=== PATIENT | female | born 1940 | race Caucasian/White ===

== ENCOUNTER 2017-07-20 13:54 | Inpatient (IN) ==
--- NOTE | 2017-07-20 18:51 | Emergency Department Note ---
Disposition Clinical Impression: Cough, Pleural effusion Fever Qualifiers: Fever type: unspecified Qualified Code(s): R50.9 - Fever, unspecified Disposition: Admitted As Inpatient Condition: Fair General Adult HPI - General Chief complaint: ED Shortness of Breath/Dyspnea Stated complaint: pneumonia Time Seen by Provider: 07/20/17 18:18 Source: patient, family, other Mode of arrival: private vehicle Limitations: no limitations Nursing Notes Reviewed: Yes Vital Signs Reviewed: Yes - History of Present Illness HPI Narrative: Patient presents from home with her daughters for evaluation of "possible pneumonia." They state that the home health nurse and the patient's family doctor both said that her right lung sounded abnormal and recommended that she come here. Patient denies pain anywhere at this time. She complains of swelling in her feet and ankles, drainage from her tumors, and an occasional cough. Family states that she has not complained of pain or dyspnea. They also note increased drainage from wounds, edema, wet cough, and describe intermittent confusion, increased weakness, and inability to get around like she used to. Patient has lymphoma. Last Chemo was 2 weeks ago. Due for more this . Sees Dr. Antonio. Had cxr done a couple weeks ago for eval of cough. Pt Subjective Complaint: Generalized weakness, mild intermittent confusion, peripheral edema Onset (ago): week(s) (1) Location: other ("no new pain") Pain Scale: 0 Consistency: intermittent Improves with: nothing Worsens with: nothing Associated symptoms: Reports: confusion (per family, patient denies), cough, fever/chills ("Low grade fever for about a week" per patient's daughters), loss of appetite, weakness (generalized), other (Recently treated for hypercalcemia with some type of infusion at the cancer center). Denies: chest pain, diaphoresis, headaches, malaise, nausea/vomiting, shortness of breath, syncope Treatments Prior to Arrival: none - Related Data Home Medications Medication Instructions Recorded Confirmed Aspirin Enteric Coated [Aspirin EC] 81 mg PO DAILY 10/31/14 07/17/17 Calcium Carbonate/Vitamin D3 1 tab PO BID 10/31/14 07/17/17 [Calcium 600 + D Tablet] Escitalopram [Lexapro] 5 mg PO DAILY 10/31/14 07/17/17 Folic Acid 0.4 mg PO DAILY 10/31/14 07/17/17 LORazepam [Ativan] 0.5 mg PO Q6H PRN 10/31/14 07/17/17 Metoprolol [Lopressor] 150 mg PO DAILY 10/31/14 07/17/17 Multivit-Min/FA/Lycopen/Lutein 1 each PO DAILY 10/31/14 07/17/17 [Centrum Silver Tablet] Atorvastatin [Lipitor] 10 mg PO HS 05/01/16 07/17/17 hydroCHLOROthiazide 12.5 mg PO DAILY PRN 05/01/16 07/17/17 [Hydrochlorothiazide] Lisinopril [Zestril] 10 mg PO DAILY 11/03/16 07/17/17 Cranberry Fruit Extract/Vit C [Azo 1 each PO DAILY 03/04/17 07/17/17 Cranberry Softgel] Previous Rx's Medication Instructions Recorded Ondansetron [Zofran] 4 mg PO Q8HR PRN #90 tablet 01/02/17 Docusate [Colace] 100 mg PO BID #60 capsule 04/17/17 Magic Mouthwash 10 ml PO Q4HR PRN #400 ml 04/21/17 Morphine Sulfate [Arymo ER] 15 mg PO BID 30 Days #60 tab.po.er 07/09/17 OxyCODONE Immed Rel [Roxicodone 15 15 mg PO Q8HR 30 Days #90 tablet 07/17/17 MG] metroNIDAZOLE [Flagyl] 500 mg PO BID #60 tablet 07/17/17 Allergies Allergy/AdvReac Type Severity Reaction Status Date / Time Diclofenac [From Voltaren] Allergy Unknown unknown Verified 07/17/17 08:28 Latex, Natural Rubber Allergy Unknown unknown Verified 07/17/17 08:28 Penicillins [PCN] Allergy Unknown unknown Verified 07/17/17 08:28 All systems ED: reviewed and negative except as stated. Review of Systems: As Per HPI Constitutional: Reports: as per HPI, fever, weakness. Denies: chills, weight change Eyes: Denies: vision change ENT ED: Denies: throat pain, congestion, dysphagia Cardiovascular: Reports: as per HPI, edema. Denies: chest pain, palpitations, dyspnea on exertion, orthopnea, syncope Respiratory: Reports: as per HPI, cough, sputum production ("Sometimes"). Denies: dyspnea, wheezes, hemoptysis, stridor Gastrointestinal: Denies: abdominal pain, nausea, vomiting, diarrhea Genitourinary: Denies: urgency, dysuria, frequency, hematuria Musculoskeletal: Reports: back pain ("No new pain, just hurts where the tumor is ". per patient). Denies: neck pain, joint swelling, arthralgia, myalgia Integumentary: Reports: lesions (draining - bilat breasts). Denies: rash Neurological: Reports: as per HPI, weakness. Denies: headache, numbness, paresthesias, abnormal gait, vertigo Endocrine: Reports: fatigue Hematological/Lymphatic: Reports: lymphadenopathy. Denies: easy bleeding, easy bruising Past Medical History - Past Medical History Attestation: Yes The following information was validated with the patient. Source: patient, old records reviewed, obtained from family Medical history: Reports: arthritis, cancer (mantle cell lymphoma), hyperlipidemia, hypertension, myocardial infarction Surgical history: Reports: appendectomy Psychiatric history: Reports: anxiety, depression - Social History Smoking Status: Never smoker Smokeless Tobacco Status: No Alcohol use: Reports: none Drug use: Reports: none Physical Exam - General Limitations: no limitations General appearance: alert, in no apparent distress - Head Head exam: atraumatic, normocephalic, normal inspection - Eye Eye exam: Present: normal appearance, PERRL, periorbital swelling (mild). Absent: scleral icterus, conjunctival injection, miosis, mydriasis - ENT ENT exam: mucous membranes dry - Neck Neck exam: Present: normal inspection, full ROM, trachea midline. Absent: meningismus - Chest Chest inspection: Present: other (draining lesions - not completely examined due to location of patient) - Respiratory Respiratory exam: Present: other. Absent: respiratory distress, wheezes, stridor, prolonged expiratory phase - Expanded Respiratory Exam Location: rales: Right, Upper, Left, decreased breath sounds: Left, Right, Lower - Cardiovascular Cardiovascular exam: Present: regular rate, normal rhythm, systolic murmur. Absent: clicks - Abdominal Exam Abdominal exam: Present: soft, Non-Tender - Extremities Exam Extremities exam: Present: full ROM, normal capillary refill, pedal edema ( bilateral feet to mid lower leg). Absent: tenderness, joint swelling, calf tenderness - Back Exam Back exam: Present: normal inspection. Absent: CVA tenderness (R), CVA tenderness (L) - Neurological Exam Neurological exam: Present: alert, oriented X3, CN II-XII intact. Absent: normal gait (requires assistance to get from wheel chair to exam table), motor sensory deficit - Psychiatric Psychiatric exam: Present: normal affect, normal mood (surprisingly cheerful, pleasant) - Skin Skin exam: Present: warm, dry, intact, normal color Course Course Narrative: Patient with hx of Lymphoma was brought to the ED by family at the recommendation of her PCP and home health nurse. Pneumonia suspected. Patient in lobby for >4 hours. Brought patient back to fast track area to initiate work up. CXR has been read by the radiologist as no definite infiltrate. Bilateral pulmonary effusions and basilar attelectasis. Labs, ekg, anti- pyretics have been ordered. EKG shows a sinus rhythm, normal rate, Right BBB, LVH. Unchanged compared to previous. 19:00 A medical bed is now available. Patient moved to a room in [facility]. Report given to Dr. Bell / Dr. Coon. Vital Signs Temperature 100.0 F H 07/20/17 13:55 Pulse Rate 79 07/20/17 13:55 Respiratory Rate 18 07/20/17 13:55 Blood Pressure 116/54 07/20/17 13:55 O2 Sat by Pulse Oximetry 96 07/20/17 13:55 Temperature 98.5 F 07/20/17 18:03 Pulse Rate 77 07/20/17 18:03 Respiratory Rate 18 07/20/17 18:03 Blood Pressure 100/57 07/20/17 18:03 O2 Sat by Pulse Oximetry 96 07/20/17 18:03 Oxygen Delivery Oxygen Delivery Room Air
[2017-07-20 19:06] LABS: INR 1.5
[2017-07-20 19:09] LABS: Activated Partial Thrombo Time 25.8 Seconds (26.0-36.0)
[2017-07-20 19:20] LABS: BUN/Creatinine Ratio 20 (6-26); Blood Urea Nitrogen 16 mg/dL (8-23); Calcium 11.2 mg/dL (8.6-10.3); Carbon Dioxide 28 mEq/L (23-29); Chloride 97 mEq/L (98-107); Glucose 69 mg/dL (70-105); Osmolality,Calculated 276 (280-300); Potassium 4.3 mEq/L (3.5-5.1); Sodium 133 mEq/L (136-145); Troponin I < 0.03 ng/mL (< 0.04); eGFR For African Americans > 60 (> 60); eGFR For Non-African Americans > 60 (> 60)
[2017-07-20] MEDS ORDERED: Isovue-370 500 ML INFUS..BTL IV ONE (19:32)
--- NOTE | 2017-07-20 19:33 | Emergency Department Note ---
Disposition Clinical Impression: Cough, Pleural effusion, Lymphoma, Pulmonary embolism Fever Qualifiers: Fever type: unspecified Qualified Code(s): R50.9 - Fever, unspecified Disposition: Admitted As Inpatient Condition: Fair Referrals: Jerry,Florentino Swan MD [Primary Care Provider] - Forms: ED Satisfaction Letter Time of Disposition: 21:13 SOB HPI - General Chief Complaint: ED Shortness of Breath/Dyspnea Stated Complaint: pneumonia Time Seen by Provider: 07/20/17 18:18 Source: patient, family, other Mode of arrival: private vehicle Limitations: no limitations - Related Data Home Medications Medication Instructions Recorded Confirmed Aspirin Enteric Coated [Aspirin EC] 81 mg PO DAILY 10/31/14 07/20/17 Calcium Carbonate/Vitamin D3 1 tab PO BID 10/31/14 07/20/17 [Calcium 600 + D Tablet] Escitalopram [Lexapro] 5 mg PO DAILY 10/31/14 07/20/17 Folic Acid 0.4 mg PO DAILY 10/31/14 07/20/17 LORazepam [Ativan] 0.5 mg PO Q6H PRN 10/31/14 07/20/17 Metoprolol [Lopressor] 150 mg PO DAILY 10/31/14 07/20/17 Multivit-Min/FA/Lycopen/Lutein 1 each PO DAILY 10/31/14 07/20/17 [Centrum Silver Tablet] Atorvastatin [Lipitor] 10 mg PO HS 05/01/16 07/20/17 hydroCHLOROthiazide 12.5 mg PO DAILY PRN 05/01/16 07/20/17 [Hydrochlorothiazide] Lisinopril [Zestril] 10 mg PO DAILY 11/03/16 07/20/17 Cranberry Fruit Extract/Vit C [Azo 1 each PO DAILY 03/04/17 07/20/17 Cranberry Softgel] Previous Rx's Medication Instructions Recorded Ondansetron [Zofran] 4 mg PO Q8HR PRN #90 tablet 01/02/17 Docusate [Colace] 100 mg PO BID #60 capsule 04/17/17 Magic Mouthwash 10 ml PO Q4HR PRN #400 ml 04/21/17 Morphine Sulfate [Arymo ER] 15 mg PO BID 30 Days #60 tab.po.er 07/09/17 OxyCODONE Immed Rel [Roxicodone 15 15 mg PO Q8HR 30 Days #90 tablet 07/17/17 MG] metroNIDAZOLE [Flagyl] 500 mg PO BID #60 tablet 07/17/17 Allergies Allergy/AdvReac Type Severity Reaction Status Date / Time Diclofenac [From Voltaren] Allergy Unknown unknown Verified 07/20/17 20:31 Latex, Natural Rubber Allergy Unknown unknown Verified 07/20/17 20:31 Penicillins [PCN] Allergy Unknown unknown Verified 07/20/17 20:31 Constitutional: Reports: as per HPI, fever, weakness. Denies: chills, weight change Eyes: Denies: vision change ENT ED: Denies: throat pain, congestion, dysphagia Cardiovascular: Reports: as per HPI, edema. Denies: chest pain, palpitations, dyspnea on exertion, orthopnea, syncope Respiratory: Reports: as per HPI, cough, sputum production ("Sometimes"). Denies: dyspnea, wheezes, hemoptysis, stridor Gastrointestinal: Denies: abdominal pain, nausea, vomiting, diarrhea Genitourinary: Denies: urgency, dysuria, frequency, hematuria Musculoskeletal: Reports: back pain ("No new pain, just hurts where the tumor is ". per patient). Denies: neck pain, joint swelling, arthralgia, myalgia Integumentary: Reports: lesions (draining - bilat breasts). Denies: rash Neurological: Reports: as per HPI, weakness. Denies: headache, numbness, paresthesias, abnormal gait, vertigo Endocrine: Reports: fatigue Hematological/Lymphatic: Reports: lymphadenopathy. Denies: easy bleeding, easy bruising Past Medical History - Past Medical History Medical history: Reports: arthritis, cancer (mantle cell lymphoma), hyperlipidemia, hypertension, myocardial infarction Surgical history: Reports: appendectomy Psychiatric history: Reports: anxiety, depression - Social History Smoking Status: Never smoker Smokeless Tobacco Status: No Alcohol use: Reports: none Drug use: Reports: none Physical Exam - General Limitations: no limitations General appearance: alert, in no apparent distress Course - Reevaluation(s) Reevaluation #1: Signout received from Coby Minor. Please see her note for full documentation of the history of present illness and physical. I agree with her assessment. In summary, patient has a history of malignancy and is presenting for cough, congestion, and generalized weakness. Family reports she normally rebounds from her chemotherapy within a few days, but it is been almost 2 weeks and she is still needing assistance with walking, which is unusual for her. She has had a nonproductive cough. Intermittent fevers. Concern over infectious ideology. She also has swelling in her right leg into my exam. Her oxygen saturation is 94%. She is denying any chest discomfort or shortness of breath. However, we will CT her chest to fully evaluate for the possibility of pneumonia, pneumonitis, malignant changes, or pulmonary embolism. - Consultations Consultation #1: Patient has a left-sided PE with no evidence heart strain. We will start her on heparin and admit. Patient family agreeable plan. Admitted to the hospital service. We did discuss that the patient had an elevated lactic acid and was mildly febrile. I do not think that she has pneumonia. I do think her fever was reactive to her PE and/or her lymphoma. We also discussed her enlarging lymphoma in her breasts. Will obviously be consulting oncology during this admission. Time: 21:11 Vital Signs Temperature 100.0 F H 07/20/17 13:55 Pulse Rate 79 07/20/17 13:55 Respiratory Rate 18 07/20/17 13:55 Blood Pressure 116/54 07/20/17 13:55 O2 Sat by Pulse Oximetry 96 07/20/17 13:55 Temperature 98.5 F 07/20/17 18:03 Pulse Rate 77 07/20/17 18:03 Respiratory Rate 18 07/20/17 18:03 Blood Pressure 100/57 07/20/17 18:03 O2 Sat by Pulse Oximetry 96 07/20/17 18:03 Oxygen Delivery Oxygen Delivery Room Air Shortness of Breath/Dyspnea - Lab Data Result diagrams: 07/20/17 18:46 07/20/17 18:46 Lab Results 07/20/17 07/20/17 07/20/17 Range/Units 18:46 18:46 18:46 WBC 8.0 (4.3-11.1) K/mcL RBC 3.31 L (3.82-4.97) M/mcL Hgb 9.3 L (11.5-15.4) g/dL Hct 28.4 L (35.3-44.9) % MCV 85.8 (83.0-100.0) fL MCH 28.1 (28.0-33.3) pg MCHC 32.7 (31.6-35.5) g/dL RDW 14.1 (11.5-14.5) % Plt Count 138 L (140-400) K/mcL MPV 12.7 H (9.4-12.4) fL Immature Gran % 7.0 H (0-4) % Seg Neutrophils % 62.3 % Lymphocytes % 12.2 % Monocytes % 17.7 % Eosinophils % 0.6 % Basophils % 0.2 % Neutrophils # 5.0 (1.6-8.9) K/mcL Lymphocytes # 1.0 (0.6-4.6) K/mcL Monocytes # 1.4 H (0.0-1.3) K/mcL Eosinophils # 0.1 (0.0-0.6) K/mcL Basophils # 0.0 (0.0-0.2) K/mcL Platelet Estimate Normal (Normal) Immature Plt Fraction 10.6 H (1.1-6.1) % PT (9.4-12.1) Seconds INR APTT (26.0-36.0) Seconds Sodium 133 L (136-145) mEq/L Potassium 4.3 (3.5-5.1) mEq/L Chloride 97 L (98-107) mEq/L Carbon Dioxide 28 (23-29) mEq/L BUN 16 (8-23) mg/dL Creatinine 0.80 (0.60-1.20) mg/dL Est GFR ( Amer) > 60 (> 60) Est GFR (Non-Af Amer) > 60 (> 60) BUN/Creatinine Ratio 20 (6-26) Glucose 69 L (70-105) mg/dL Calculated Osmolality 276 L (280-300) Lactic Acid 2.8 H (0.5-2.2) mmol/L Calcium 11.2 H (8.6-10.3) mg/dL Troponin I < 0.03 (< 0.04) ng/mL B-Natriuretic Peptide (Less than 100) pg/mL Urine Color (Yellow) Urine Clarity (Clear) Urine pH (5.0-8.0) pH Units Ur Specific Homer (1.010-1.025) Urine Protein (Neg-Trace) mg/dL Urine Glucose (UA) (Normal) mg/dL Urine Ketones (Negative) mg/dL Urine Blood (Negative) Urine Nitrite (Negative) Urine Bilirubin (Negative) Urine Urobilinogen (Normal) mg/dL Ur Leukocyte Esterase (Negative) Urine Microscopic RBC (0-3) per hpf Urine Microscopic WBC (0-3) per hpf Ur Squamous Epith Cells (None-Few) per lpf Urine Bacteria (None-Few) per hpf Hyaline Casts (None-Few) per lpf Ur Culture Indicated? (NO) 07/20/17 07/20/17 07/20/17 Range/Units 18:46 18:46 19:29 WBC (4.3-11.1) K/mcL RBC (3.82-4.97) M/mcL Hgb (11.5-15.4) g/dL Hct (35.3-44.9) % MCV (83.0-100.0) fL MCH (28.0-33.3) pg MCHC (31.6-35.5) g/dL RDW (11.5-14.5) % Plt Count (140-400) K/mcL MPV (9.4-12.4) fL Immature Gran % (0-4) % Seg Neutrophils % % Lymphocytes % % Monocytes % % Eosinophils % % Basophils % % Neutrophils # (1.6-8.9) K/mcL Lymphocytes # (0.6-4.6) K/mcL Monocytes # (0.0-1.3) K/mcL Eosinophils # (0.0-0.6) K/mcL Basophils # (0.0-0.2) K/mcL Platelet Estimate (Normal) Immature Plt Fraction (1.1-6.1) % PT 16.0 H (9.4-12.1) Seconds INR 1.5 APTT 25.8 L (26.0-36.0) Seconds Sodium (136-145) mEq/L Potassium (3.5-5.1) mEq/L Chloride (98-107) mEq/L Carbon Dioxide (23-29) mEq/L BUN (8-23) mg/dL Creatinine (0.60-1.20) mg/dL Est GFR ( Amer) (> 60) Est GFR (Non-Af Amer) (> 60) BUN/Creatinine Ratio (6-26) Glucose (70-105) mg/dL Calculated Osmolality (280-300) Lactic Acid (0.5-2.2) mmol/L Calcium (8.6-10.3) mg/dL Troponin I (< 0.04) ng/mL B-Natriuretic Peptide 174 H (Less than 100) pg/mL Urine Color Dark Yellow (Yellow) Urine Clarity Clear (Clear) Urine pH 5.5 (5.0-8.0) pH Units Ur Specific Homer 1.025 (1.010-1.025) Urine Protein 30 H (Neg-Trace) mg/dL Urine Glucose (UA) Normal (Normal) mg/dL Urine Ketones 15 H (Negative) mg/dL Urine Blood Negative (Negative) Urine Nitrite Negative (Negative) Urine Bilirubin Negative (Negative) Urine Urobilinogen Normal (Normal) mg/dL Ur Leukocyte Esterase Trace H (Negative) Urine Microscopic RBC 0-3 (0-3) per hpf Urine Microscopic WBC 3-5 H (0-3) per hpf Ur Squamous Epith Cells Many H (None-Few) per lpf Urine Bacteria None Seen (None-Few) per hpf Hyaline Casts None Seen (None-Few) per lpf Ur Culture Indicated? NO. A (NO) Attestation Statement - Attestation Attestation: I, Hema Coon DO, examined this patient [id number] and my medical decision-making was reviewed with Dr. Jovanny Bell, Resident Physician. I agree with the documented findings, disposition and treatment plan as described except to the extent set forth below. Please see my progress notes for details.
[2017-07-20 19:35] LABS: Basophils % 0.2 %; Eosinophils # 0.1 K/mcL (0.0-0.6); Eosinophils % 0.6 %; Hematocrit 28.4 % (35.3-44.9); Hemoglobin 9.3 g/dL (11.5-15.4); Immature Platelets 10.6 % (1.1-6.1); Lymphocytes % 12.2 %; Mean Corpuscular HGB Conc 32.7 g/dL (31.6-35.5); Mean Corpuscular Hemoglobin 28.1 pg (28.0-33.3); Mean Corpuscular Volume 85.8 fL (83.0-100.0); Mean Platelet Volume 12.7 fL (9.4-12.4); Monocytes # 1.4 K/mcL (0.0-1.3); Monocytes % 17.7 %; Platelet Count 138 K/mcL (140-400); Red Blood Count 3.31 M/mcL (3.82-4.97); Red Cell Distribution Width 14.1 % (11.5-14.5); Segmented Neutrophils % 62.3 %
[2017-07-20 19:49] LABS: Bilirubin,Urine Negative (Negative); Blood,Urine Negative (Negative); Clarity,Urine Clear (Clear); Color,Urine Dark Yellow (Yellow); Glucose,Urine (UA) Normal (Normal); Ketones,Urine 15 mg/dL (Negative); Leukocyte Esterase,Urine Trace (Negative); Nitrite,Urine Negative (Negative); PH,Urine 5.5 pH Units (5.0-8.0); Protein,Urine 30 mg/dL (Neg-Trace); Specific Gravity,Urine 1.025 (1.010-1.025); Urobilinogen,Urine Normal (Normal)
[2017-07-20 19:51] LABS: Bacteria,Urine None Seen per hpf (None-Few); Hyaline Casts,Urine None Seen per lpf (None-Few); RBC,Urine 0-3 per hpf (0-3); Squamous Epithelial Cell,Urine Many per lpf (None-Few)
[2017-07-20 19:57] LABS: Platelet Estimate Normal (Normal)
--- NOTE | 2017-07-20 20:25 | Emergency Department Note ---
Disposition Clinical Impression: Cough, Pleural effusion, Lymphoma, Pulmonary embolism Fever Qualifiers: Fever type: unspecified Qualified Code(s): R50.9 - Fever, unspecified Disposition: Admitted As Inpatient Condition: Fair General Adult HPI - General Chief complaint: ED Shortness of Breath/Dyspnea Stated complaint: pneumonia Time Seen by Provider: 07/20/17 18:18 Source: patient, family, other Mode of arrival: private vehicle Limitations: no limitations - History of Present Illness Location: other ("no new pain") Pain Scale: 0 Improves with: nothing Worsens with: nothing Associated symptoms: Reports: confusion (per family, patient denies), cough, fever/chills ("Low grade fever for about a week" per patient's daughters), loss of appetite, weakness (generalized), other (Recently treated for hypercalcemia with some type of infusion at the cancer center). Denies: chest pain, diaphoresis, headaches, malaise, nausea/vomiting, shortness of breath, syncope Treatments Prior to Arrival: none - Related Data Home Medications Medication Instructions Recorded Confirmed Aspirin Enteric Coated [Aspirin EC] 81 mg PO DAILY 10/31/14 07/20/17 Calcium Carbonate/Vitamin D3 1 tab PO BID 10/31/14 07/20/17 [Calcium 600 + D Tablet] Escitalopram [Lexapro] 5 mg PO DAILY 10/31/14 07/20/17 Folic Acid 0.4 mg PO DAILY 10/31/14 07/20/17 LORazepam [Ativan] 0.5 mg PO Q6H PRN 10/31/14 07/20/17 Metoprolol [Lopressor] 150 mg PO DAILY 10/31/14 07/20/17 Multivit-Min/FA/Lycopen/Lutein 1 each PO DAILY 10/31/14 07/20/17 [Centrum Silver Tablet] Atorvastatin [Lipitor] 10 mg PO HS 05/01/16 07/20/17 hydroCHLOROthiazide 12.5 mg PO DAILY PRN 05/01/16 07/20/17 [Hydrochlorothiazide] Lisinopril [Zestril] 10 mg PO DAILY 11/03/16 07/20/17 Cranberry Fruit Extract/Vit C [Azo 1 each PO DAILY 03/04/17 07/20/17 Cranberry Softgel] Previous Rx's Medication Instructions Recorded Ondansetron [Zofran] 4 mg PO Q8HR PRN #90 tablet 01/02/17 Docusate [Colace] 100 mg PO BID #60 capsule 04/17/17 Magic Mouthwash 10 ml PO Q4HR PRN #400 ml 04/21/17 Morphine Sulfate [Arymo ER] 15 mg PO BID 30 Days #60 tab.po.er 07/09/17 OxyCODONE Immed Rel [Roxicodone 15 15 mg PO Q8HR 30 Days #90 tablet 07/17/17 MG] metroNIDAZOLE [Flagyl] 500 mg PO BID #60 tablet 07/17/17 Allergies Allergy/AdvReac Type Severity Reaction Status Date / Time Diclofenac [From Voltaren] Allergy Unknown unknown Verified 07/20/17 20:31 Latex, Natural Rubber Allergy Unknown unknown Verified 07/20/17 20:31 Penicillins [PCN] Allergy Unknown unknown Verified 07/20/17 20:31 Constitutional: Reports: as per HPI, fever, weakness. Denies: chills, weight change Eyes: Denies: vision change ENT ED: Denies: throat pain, congestion, dysphagia Cardiovascular: Reports: as per HPI, edema. Denies: chest pain, palpitations, dyspnea on exertion, orthopnea, syncope Respiratory: Reports: as per HPI, cough, sputum production ("Sometimes"). Denies: dyspnea, wheezes, hemoptysis, stridor Gastrointestinal: Denies: abdominal pain, nausea, vomiting, diarrhea Genitourinary: Denies: urgency, dysuria, frequency, hematuria Musculoskeletal: Reports: back pain ("No new pain, just hurts where the tumor is ". per patient). Denies: neck pain, joint swelling, arthralgia, myalgia Integumentary: Reports: lesions (draining - bilat breasts). Denies: rash Neurological: Reports: as per HPI, weakness. Denies: headache, numbness, paresthesias, abnormal gait, vertigo Endocrine: Reports: fatigue Hematological/Lymphatic: Reports: lymphadenopathy. Denies: easy bleeding, easy bruising Past Medical History - Past Medical History Medical history: Reports: arthritis, cancer (mantle cell lymphoma), hyperlipidemia, hypertension, myocardial infarction Surgical history: Reports: appendectomy Psychiatric history: Reports: anxiety, depression - Social History Smoking Status: Never smoker Smokeless Tobacco Status: No Alcohol use: Reports: none Drug use: Reports: none Physical Exam - General Limitations: no limitations General appearance: alert, in no apparent distress Course Vital Signs Temperature 100.0 F H 07/20/17 13:55 Pulse Rate 79 07/20/17 13:55 Respiratory Rate 18 07/20/17 13:55 Blood Pressure 116/54 07/20/17 13:55 O2 Sat by Pulse Oximetry 96 07/20/17 13:55 Temperature 98.5 F 07/20/17 18:03 Pulse Rate 76 07/20/17 21:29 Respiratory Rate 20 07/20/17 21:29 Blood Pressure 134/58 07/20/17 21:29 O2 Sat by Pulse Oximetry 92 07/20/17 21:29 Oxygen Delivery Oxygen Delivery Room Air Medical Decision Making - Lab Data Result diagrams: 07/20/17 18:46 07/20/17 18:46 Lab Results 07/20/17 07/20/17 07/20/17 Range/Units 18:46 18:46 18:46 WBC 8.0 (4.3-11.1) K/mcL RBC 3.31 L (3.82-4.97) M/mcL Hgb 9.3 L (11.5-15.4) g/dL Hct 28.4 L (35.3-44.9) % MCV 85.8 (83.0-100.0) fL MCH 28.1 (28.0-33.3) pg MCHC 32.7 (31.6-35.5) g/dL RDW 14.1 (11.5-14.5) % Plt Count 138 L (140-400) K/mcL MPV 12.7 H (9.4-12.4) fL Immature Gran % 7.0 H (0-4) % Seg Neutrophils % 62.3 % Lymphocytes % 12.2 % Monocytes % 17.7 % Eosinophils % 0.6 % Basophils % 0.2 % Neutrophils # 5.0 (1.6-8.9) K/mcL Lymphocytes # 1.0 (0.6-4.6) K/mcL Monocytes # 1.4 H (0.0-1.3) K/mcL Eosinophils # 0.1 (0.0-0.6) K/mcL Basophils # 0.0 (0.0-0.2) K/mcL Platelet Estimate Normal (Normal) Immature Plt Fraction 10.6 H (1.1-6.1) % PT (9.4-12.1) Seconds INR APTT (26.0-36.0) Seconds Sodium 133 L (136-145) mEq/L Potassium 4.3 (3.5-5.1) mEq/L Chloride 97 L (98-107) mEq/L Carbon Dioxide 28 (23-29) mEq/L BUN 16 (8-23) mg/dL Creatinine 0.80 (0.60-1.20) mg/dL Est GFR ( Amer) > 60 (> 60) Est GFR (Non-Af Amer) > 60 (> 60) BUN/Creatinine Ratio 20 (6-26) Glucose 69 L (70-105) mg/dL Calculated Osmolality 276 L (280-300) Lactic Acid 2.8 H (0.5-2.2) mmol/L Calcium 11.2 H (8.6-10.3) mg/dL Troponin I < 0.03 (< 0.04) ng/mL B-Natriuretic Peptide (Less than 100) pg/mL Urine Color (Yellow) Urine Clarity (Clear) Urine pH (5.0-8.0) pH Units Ur Specific [place] (1.010-1.025) Urine Protein (Neg-Trace) mg/dL Urine Glucose (UA) (Normal) mg/dL Urine Ketones (Negative) mg/dL Urine Blood (Negative) Urine Nitrite (Negative) Urine Bilirubin (Negative) Urine Urobilinogen (Normal) mg/dL Ur Leukocyte Esterase (Negative) Urine Microscopic RBC (0-3) per hpf Urine Microscopic WBC (0-3) per hpf Ur Squamous Epith Cells (None-Few) per lpf Urine Bacteria (None-Few) per hpf Hyaline Casts (None-Few) per lpf Ur Culture Indicated? (NO) 07/20/17 07/20/17 07/20/17 Range/Units 18:46 18:46 19:29 WBC (4.3-11.1) K/mcL RBC (3.82-4.97) M/mcL Hgb (11.5-15.4) g/dL Hct (35.3-44.9) % MCV (83.0-100.0) fL MCH (28.0-33.3) pg MCHC (31.6-35.5) g/dL RDW (11.5-14.5) % Plt Count (140-400) K/mcL MPV (9.4-12.4) fL Immature Gran % (0-4) % Seg Neutrophils % % Lymphocytes % % Monocytes % % Eosinophils % % Basophils % % Neutrophils # (1.6-8.9) K/mcL Lymphocytes # (0.6-4.6) K/mcL Monocytes # (0.0-1.3) K/mcL Eosinophils # (0.0-0.6) K/mcL Basophils # (0.0-0.2) K/mcL Platelet Estimate (Normal) Immature Plt Fraction (1.1-6.1) % PT 16.0 H (9.4-12.1) Seconds INR 1.5 APTT 25.8 L (26.0-36.0) Seconds Sodium (136-145) mEq/L Potassium (3.5-5.1) mEq/L Chloride (98-107) mEq/L Carbon Dioxide (23-29) mEq/L BUN (8-23) mg/dL Creatinine (0.60-1.20) mg/dL Est GFR ( Amer) (> 60) Est GFR (Non-Af Amer) (> 60) BUN/Creatinine Ratio (6-26) Glucose (70-105) mg/dL Calculated Osmolality (280-300) Lactic Acid (0.5-2.2) mmol/L Calcium (8.6-10.3) mg/dL Troponin I (< 0.04) ng/mL B-Natriuretic Peptide 174 H (Less than 100) pg/mL Urine Color Dark Yellow (Yellow) Urine Clarity Clear (Clear) Urine pH 5.5 (5.0-8.0) pH Units Ur Specific [place] 1.025 (1.010-1.025) Urine Protein 30 H (Neg-Trace) mg/dL Urine Glucose (UA) Normal (Normal) mg/dL Urine Ketones 15 H (Negative) mg/dL Urine Blood Negative (Negative) Urine Nitrite Negative (Negative) Urine Bilirubin Negative (Negative) Urine Urobilinogen Normal (Normal) mg/dL Ur Leukocyte Esterase Trace H (Negative) Urine Microscopic RBC 0-3 (0-3) per hpf Urine Microscopic WBC 3-5 H (0-3) per hpf Ur Squamous Epith Cells Many H (None-Few) per lpf Urine Bacteria None Seen (None-Few) per hpf Hyaline Casts None Seen (None-Few) per lpf Ur Culture Indicated? NO. A (NO) 07/20/17 Range/Units 20:51 WBC (4.3-11.1) K/mcL RBC (3.82-4.97) M/mcL Hgb (11.5-15.4) g/dL Hct (35.3-44.9) % MCV (83.0-100.0) fL MCH (28.0-33.3) pg MCHC (31.6-35.5) g/dL RDW (11.5-14.5) % Plt Count (140-400) K/mcL MPV (9.4-12.4) fL Immature Gran % (0-4) % Seg Neutrophils % % Lymphocytes % % Monocytes % % Eosinophils % % Basophils % % Neutrophils # (1.6-8.9) K/mcL Lymphocytes # (0.6-4.6) K/mcL Monocytes # (0.0-1.3) K/mcL Eosinophils # (0.0-0.6) K/mcL Basophils # (0.0-0.2) K/mcL Platelet Estimate (Normal) Immature Plt Fraction (1.1-6.1) % PT (9.4-12.1) Seconds INR APTT (26.0-36.0) Seconds Sodium (136-145) mEq/L Potassium (3.5-5.1) mEq/L Chloride (98-107) mEq/L Carbon Dioxide (23-29) mEq/L BUN (8-23) mg/dL Creatinine (0.60-1.20) mg/dL Est GFR ( Amer) (> 60) Est GFR (Non-Af Amer) (> 60) BUN/Creatinine Ratio (6-26) Glucose (70-105) mg/dL Calculated Osmolality (280-300) Lactic Acid 2.3 H (0.5-2.2) mmol/L Calcium (8.6-10.3) mg/dL Troponin I (< 0.04) ng/mL B-Natriuretic Peptide (Less than 100) pg/mL Urine Color (Yellow) Urine Clarity (Clear) Urine pH (5.0-8.0) pH Units Ur Specific [place] (1.010-1.025) Urine Protein (Neg-Trace) mg/dL Urine Glucose (UA) (Normal) mg/dL Urine Ketones (Negative) mg/dL Urine Blood (Negative) Urine Nitrite (Negative) Urine Bilirubin (Negative) Urine Urobilinogen (Normal) mg/dL Ur Leukocyte Esterase (Negative) Urine Microscopic RBC (0-3) per hpf Urine Microscopic WBC (0-3) per hpf Ur Squamous Epith Cells (None-Few) per lpf Urine Bacteria (None-Few) per hpf Hyaline Casts (None-Few) per lpf Ur Culture Indicated? (NO) Attestation Statement - Attestation Attestation: I, Hema Coon DO, examined this patient [id number] and my medical decision-making was reviewed with Dr. Jovanny Bell, Resident Physician. I agree with the documented findings, disposition and treatment plan as described except to the extent set forth below. Please see my progress notes for details. 76-year-old female presents emergency room with cough congestion shortness of breath. There is concern for possible pneumonia. She is currently in treatment for lymphoma. Patient has been getting chemotherapy every 2 weeks for the last 4 years. Patient denies any trauma or injuries. Vital signs are stable on presentation except for fever. Patient has had a productive cough. Denies any chest pain headache vision changes nausea vomiting or diarrhea. She has had constipation. Denies any burning with urination falls or trauma. Patient is alert she answers questions she follows commands. Labs including CBC chemistry urinalysis as well as chest x-ray EKG and possible CT imaging of the chest will be completed secondary to patient's presentation symptoms. Blood cultures were ordered. Antibiotic regimen will be started once the workup is patient's blood pressure and heart rate of been otherwise unremarkable. Patient will most of the require admission was the treatment course and evaluation are established and completed. See detailed documentation of the physical exam, medical intervention, medical decision- making and disposition the resident physician's note. Patient's lungs are coarse bilaterally she does have intermittent wheezing. Her abdomen is soft nontender nondistended no guarding no rigidity. She has +2 pitting edema to the midshin bilaterally pulses are intact and symmetrical bilaterally. Patient does appear to be alert and has normal neurologic evaluation evaluation here in the emergency room. 2044 Patient found to have left-sided PEs with segmental and subsegmental presentation. Patient does not show any hemodynamic instability but because of the progressive disease with her lymphoma as well as a chemotherapy and the borderline temperature patient will be admitted to the hospital with a heparin drip. Unfortunately, there is no infectious etiology noted on the workup of this point sandbox will be held. She has been slightly elevated lactic acid as well as temperature on presentation but none of which are meeting sepsis criteria patient will be admitted for further definitive management. Vital signs remain stable without the treatment course. Both patient and the family have been informed of the plan and they are comfortable with this at this time. No other acute concerns or issues noted. Hospitalist was paged. Patient was accepted by the hospitalist. Repeat lactic acid was 2.3. No antibiotic to be started this time. Patient is otherwise clinically stable and will be admitted at this point for pulmonary emboli and anemia with shortness of breath.
[2017-07-20] MEDS ORDERED: *HR* Heparin 5,000 UNIT/ML VIAL IVP ONE (20:41)
[2017-07-20] MEDS: 0.9 % Sodium Chloride 1,000 ML IVC SCH (20:51)
[2017-07-20] MEDS: Heparin 25,000 UNIT/500 ML D5W 25,000 UNIT/500 ML BAG IVC SCH (23:12)
[2017-07-20] MEDS ORDERED: *HR* HYDROcodone/Acet 5/325 mg TABLET PO PRN (23:39)
[2017-07-20] MEDS ORDERED: Naloxone 0.4 MG/ML INJ IVP PRN (23:39)
[2017-07-20] MEDS ORDERED: *HR* OxyCODONE Immed Rel 5 MG TABLET PO PRN (23:39)
[2017-07-20] MEDS ORDERED: Acetaminophen 325 MG TABLET PO PRN (23:39)
[2017-07-20] MEDS ORDERED: *HR* LORazepam 0.5 MG TABLET PO PRN (23:44)
[2017-07-20] MEDS ORDERED: Magic Mouthwash 10 ML UD Cup PO PRN (23:44)
--- NOTE | 2017-07-20 23:47 | Internal Med History&Physical ---
Date of Encounter: 07/20/17 Time of Encounter: 23:47 Internal Medicine - H&P: HPI Chief complaint: Weakness, malaise Admitted From: Emergency Dept Plans for Post Hospital Care: Home History of present illness: Ms. Jones is a 76 year old female with h/o- mantle cell lymphoma with multiple skin lesions, presents with c/o- generalized weakness and malaise for the last few days. History is also obtained from patient's daughter at bedside. patient does live alone but her family checks on her frequently; she just had [facility] set up. She failed initial chemotherapy for lymphoma and was recently started on a new regimen about 10days ago, since when she began declining per family. SHe has significant malaise, weakness and lethargy along with exertional dyspnea, leg swelling and moist cough. No chest pain, palpitations. She reports nausea but no vomiting, abdominal pain; she has constipation due to pain meds. She also noted right breast lesion size and drainage has increased over the last few days. She has multiple lymphomatous skin lesions, the biggest and worst being in right breast, along with left breast, left hip, right back. SHe cleans them, applies Neosporin and covers with dry gauze. Past Med Surg Social Fam HX - Past Medical History Source: patient Medical history: arthritis, cancer (NHL), coronary artery disease, myocardial infarction Psychiatric history: anxiety, depression - Past Surgical History Surgical History: appendectomy, other (oophorectomy, axillary lymph node dissection) - Social History Smoking Status: Never smoker Smokeless Tobacco Status: No Alcohol use: none Drug use: none Current living situation: Home - Independent Activity Level: Independent ambulation Recent Out of Country Travel Within the Last 8 Weeks: No Exposure or Possible Exposure to Illness During Travel: No - Family History Sister Hx Family Cancer: Yes (breast cancer, renal cancer) Hx Family Endocrine Disorder: Yes (DM) Internal Medicine - H&P: Meds Aspirin Enteric Coated [Aspirin EC] 81 mg PO DAILY 10/31/14 [History] Calcium Carbonate/Vitamin D3 [Calcium 600 + D Tablet] 1 tab PO BID 10/31/14 [ History] Escitalopram [Lexapro] 5 mg PO DAILY 10/31/14 [History] Folic Acid 0.4 mg PO DAILY 10/31/14 [History] LORazepam [Ativan] 0.5 mg PO Q6H PRN 10/31/14 [History] Metoprolol [Lopressor] 150 mg PO DAILY 10/31/14 [History] Multivit-Min/FA/Lycopen/Lutein [Centrum Silver Tablet] 1 each PO DAILY 10/31/14 [History] Atorvastatin [Lipitor] 10 mg PO HS 05/01/16 [History] hydroCHLOROthiazide [Hydrochlorothiazide] 12.5 mg PO DAILY PRN 05/01/16 [History ] Lisinopril [Zestril] 10 mg PO DAILY 11/03/16 [History] Ondansetron [Zofran] 4 mg PO Q8HR PRN #90 tablet 01/02/17 [Rx] Cranberry Fruit Extract/Vit C [Azo Cranberry Softgel] 1 each PO DAILY 03/04/17 [ History] Docusate [Colace] 100 mg PO BID #60 capsule 04/17/17 [Rx] Magic Mouthwash 10 ml PO Q4HR PRN #400 ml 04/21/17 [Rx] Morphine Sulfate [Arymo ER] 15 mg PO BID 30 Days #60 tab.po.er 07/09/17 [Rx] OxyCODONE Immed Rel [Roxicodone 15 MG] 15 mg PO Q8HR 30 Days #90 tablet [Rx] metroNIDAZOLE [Flagyl] 500 mg PO BID #60 tablet 07/17/17 [Rx] 3 Allergy/AdvReac Type Severity Reaction Status Date / Time Diclofenac [From Voltaren] Allergy Unknown unknown Verified 07/20/17 20:31 Latex, Natural Rubber Allergy Unknown unknown Verified 07/20/17 20:31 Penicillins [PCN] Allergy Unknown unknown Verified 07/20/17 20:31 All Systems PM: A 10-system review of systems was performed and is negative for pertinent findings except as documented above in the HPI. - Constitutional Constitutional: chills, fever(s), no night sweats - EENT Eyes: no change in vision, no discharge, no pain, no photophobia Ears: no ear discharge, no ear pain, no tinnitus Nose, mouth and throat: no dysphagia, no nasal discharge, no neck pain, no sore throat - Cardiovascular Cardiovascular ROS IM: dyspnea, dyspnea on exertion, edema, lightheadedness - Respiratory Respiratory: cough, dyspnea on exertion, chest congestion - Gastrointestinal Gastrointestinal: constipation, no abdominal pain, no diarrhea, no hematemesis, no hematochezia, no melena, no nausea, no vomiting - Genitourinary Genitourinary: no change in urinary stream, no dysuria, no flank pain, no hematuria - Musculoskeletal Musculoskeletal ROS IM: no numbness, no tingling - Integumentary Integumentary IM: as per HPI, non-healing lesions, no rash, no unusual bruising - Neurological Neurological ROS: no confusion, no convulsions, no focal weakness, no numbness, no tingling, no tremor(s) - Hematologic/Lymphatic Hematologic/Lymphatic: no easy bruising - Constitutional Vitals: Temp Pulse Resp BP Pulse Ox 97.9 F 71 16 113/67 96 07/20/17 22:15 07/20/17 22:15 07/20/17 22:15 07/20/17 22:15 07/20/17 22:15 General appearance: Present: A&O X 3, answers questions appropriately - Respiratory Respiratory exam: Present: CTAB. Absent: accessory muscle use, rales, rhonchi, wheezes - Cardiovascular Cardiovascular exam: Present: RRR, +S1, +S2. Absent: diastolic murmur, gallop, rubs, systolic murmur - GI/Abdominal GI/Abdominal exam: Present: normal bowel sounds, soft, no peritoneal signs. Absent: distended, tenderness - Extremities Exam Extremities exam: Present: full ROM, pedal edema (1+ pitting pedal edema B/L lower legs and ankles), warm, radial pulses palpable and symmetrical. Absent: calf tenderness, cyanotic - Neurological Exam Neurological exam: Present: CN II-XII intact, oriented X3, no focal deficits. Absent: pronater drift, facial droop, speech deficit - Skin Skin exam: Present: dry, intact Additional comments: B/L breasts with fungating erythematous tender masses; right breast- ulcerated mass, nonfoul-smelling serous discharge; no signs of infection Internal Med - H&P Results - Labs CBC & Chem 7: 07/20/17 18:46 07/20/17 18:46 - EKG Data -: EKG Interpreted by Myself EKG shows normal: sinus rhythm Rate: normal - Assessment and plan (1) Pulmonary embolism Current Visit: Yes Status: Acute Assessment and plan: CTA chest was done in the ER, which showed multiple segmental and subsegmental PE in lingluar and LLL pulmonary arteries; interval enlargement in the axillary and chest wall lymphomas; patient will likely require lifelong anticoagulation due to underlying malignancy; check B/L Venous Doppler; start anticoagulation with IV Heparin; supplemental o2 and supportive care; check Echocardiogram; will consult Oncology for further recommendations; Qualifiers: Pulmonary embolism type: other Chronicity: acute Acute cor pulmonale presence: without acute cor pulmonale Qualified Code(s): I26.99 - Other pulmonary embolism without acute cor pulmonale (2) CAD (coronary artery disease) Current Visit: Yes Status: Chronic Assessment and plan: continue ASA, statin, beta mayi, ACEI; Qualifiers: Coronary Disease-Associated Artery/Lesion type: [place] artery [place] vs. transplanted heart: [place] heart Associated angina: without angina Qualified Code(s): I25.10 - Atherosclerotic heart disease of [place] coronary artery without angina pectoris (3) Lymphoma Current Visit: Yes Status: Chronic Assessment and plan: Mantle cell lymphoma, on chemotherapy; progressing; Oncology consult for further recommendations; PT/OT evaluation; Qualifiers: Lymphoma type: non-Hodgkin Non-Hodgkin lymphoma type: non-follicular Non- follicular lymphoma type: mantle cell Lymphoma site: multiple regions Qualified Code(s): C83.18 - Mantle cell lymphoma, lymph nodes of multiple sites - Time Spent With Patient Total time spent is greater than 50% in coordination of care (as documented) at patient's floor/unit and/or counseling patient:
[2017-07-21] MEDS: *HR* Morphine Sulfate SR (12 HR) 15 MG TABLET.ER PO SCH ×3 (00:35→20:50)
[2017-07-21] MEDS: 0.9 % Sodium Chloride 1,000 ML IVC SCH (00:36)
[2017-07-21 01:33] LABS: Basophils % 0.3 %; Eosinophils # 0.1 K/mcL (0.0-0.6); Eosinophils % 1.4 %; Hematocrit 24.7 % (35.3-44.9); Hemoglobin 8.1 g/dL (11.5-15.4); Immature Granulocytes % 2.6 % (0-4); Lymphocytes % 10.4 %; Mean Corpuscular HGB Conc 32.8 g/dL (31.6-35.5); Mean Corpuscular Hemoglobin 27.7 pg (28.0-33.3); Mean Corpuscular Volume 84.6 fL (83.0-100.0); Mean Platelet Volume 12.5 fL (9.4-12.4); Monocytes # 1.2 K/mcL (0.0-1.3); Monocytes % 18.9 %; Neutrophils # 4.1 K/mcL (1.6-8.9); Platelet Count 132 K/mcL (140-400); Red Blood Count 2.92 M/mcL (3.82-4.97); Red Cell Distribution Width 14.1 % (11.5-14.5); Segmented Neutrophils % 66.4 %
[2017-07-21 01:46] LABS: Lymphocytes # 0.6 K/mcL (0.6-4.6)
[2017-07-21 01:50] LABS: BUN/Creatinine Ratio 21 (6-26); Blood Urea Nitrogen 15 mg/dL (8-23); Calcium 10.2 mg/dL (8.6-10.3); Carbon Dioxide 24 mEq/L (23-29); Chloride 103 mEq/L (98-107); Glucose 87 mg/dL (70-105); Magnesium 1.6 mg/dL (1.6-2.6); Osmolality,Calculated 284 (280-300); Sodium 137 mEq/L (136-145); eGFR For African Americans > 60 (> 60); eGFR For Non-African Americans > 60 (> 60)
[2017-07-21 02:16] LABS: Platelet Estimate Decreased (Normal)
[2017-07-21] MEDS ORDERED: *HR* Heparin 5,000 UNIT/ML VIAL IVP PRN (06:42)
[2017-07-21] MEDS: *HR* Heparin 5,000 UNIT/ML VIAL IVP PRN ×2 (07:26→14:57)
[2017-07-21] MEDS: Aspirin Enteric Coated 81 MG Tablet PO SCH (08:10)
[2017-07-21] MEDS: Folic Acid 1 MG TABLET PO SCH (08:12)
[2017-07-21] MEDS: metroNIDAZOLE 500 MG TABLET PO SCH ×2 (08:12→20:39)
[2017-07-21] MEDS: *HR* OxyCODONE Immed Rel 15 MG TABLET PO PRN (08:13)
[2017-07-21] MEDS: Multivit/Ca/Min/Fe/FA 1 TAB TABLET PO SCH (08:13)
[2017-07-21] MEDS ORDERED: Metoprolol 100 MG TABLET PO SCH (09:00)
--- NOTE | 2017-07-21 10:36 | Oncology Inp Consult Note ---
<Nisha Gibson L - Last Filed: 07/22/17 09:59> Date of Encounter: 07/21/17 Time of Encounter: 10:36 Assessment and Plan (1) Pulmonary embolism Status: Acute Assessment and plan: CTA reveals Acute segmental and subsegmental pulmonary emboli in the lingula and left lower lobe pulmonary arteries. No evidence of pulmonary infarct or right heart strain. Troponin <0.03 Echo-pending O2 sat adequate on room air, reports SOB Currently on heparin gtt- recommend transition to lovenox per primary team- discharge home on lovenox, will likely then transition to DOAC indefinitely on outpatient basis following 1-2 months of lovenox therapy-duration TBD by treating oncologist. Qualifiers: Pulmonary embolism type: other Chronicity: acute Acute cor pulmonale presence: without acute cor pulmonale Qualified Code(s): I26.99 - Other pulmonary embolism without acute cor pulmonale (2) Lymphoma Status: Chronic Assessment and plan: Refractory. Multiple previous lines of therapy as detailed in HPI. She most recently started treatment with Gemzar/ oxaliplatin cycle one 07/09/2017 following recommendation from [facility]. Gemzar and oxaliplatin had to be dose reduced due to bleeding as well as thrombocytopenia. Her performance status has appeared to have declined significantly since starting GemOx. She has had recent increase in size of lymphotamous soft tissue breast masses and had planned to follow up on July 23 with radiation oncology for evaluation for role for palliative radiotherapy. Radiation will be pursued on outpatient basis. CTA on admission reveals interval enlargement of anterior chest wall and axillary soft tissue masses, and new adrenal nodules, most likely lymphomatous. LDH 1344. Qualifiers: Lymphoma type: non-Hodgkin Non-Hodgkin lymphoma type: non-follicular Non- follicular lymphoma type: mantle cell Lymphoma site: multiple regions Qualified Code(s): C83.18 - Mantle cell lymphoma, lymph nodes of multiple sites (3) Anemia Status: Acute Assessment and plan: Hgb, decreased from normal baseline and decreased 1 gram since yesterday. Check occult stool blood Ordered B12, folate, iron profile, LDH and ferritin. May be secondary to gemzer/oxaliplatin received on 07/09 Qualifiers: Qualified Code(s): D64.9 - Anemia, unspecified (4) Cellulitis of left breast Status: Acute Assessment and plan: TMAX 100.0 Primary team started vanc/cefepime Wound care consulted Blood cultures obtained H/O bleeding to breast lesions/ulcer-no bleeding presently, continue to monitor closely ANC normal Please refer to Dr. Napier's attestation for additional details. - Data of Consult Patient: known to practice within the last 3 years Consult date: 07/21/17 Requesting Physician: Simone Chris MD Primary Care Provider: Florentino Edwards MD - Consult Narrative Reason for consult: Mantle Cell Lymphoma History of present illness: Ms. 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 She had PD clinically on cladrabine. Due to intolerance acalabrutinib stopped. She is on metoprolol wo palpitations-- restarted acalabrutinib due to progressive disease is being held. She most recently started treatment with Gemzar/ oxaliplatin 07/09/2017 following recommendation from [facility]. Gemzar and oxaliplatin had to be dose reduced due to bleeding as well as thrombocytopenia. She has had recent increase in size of lymphotamous soft tissue breast masses and had planned to follow up on July 23 with radiation oncology for evaluation for role for palliative radiotherapy. She was prescribed flagyl at her most recent visit for left breast ulceration with serosanginous drainage. Past Med Surg Social Fam HX - Past Medical History Medical history: arthritis, cancer (NHL), coronary artery disease, myocardial infarction Psychiatric history: anxiety, depression - Past Surgical History Surgical History: appendectomy, other (oophorectomy, axillary lymph node dissection) - Social History Smoking Status: Never smoker Smokeless Tobacco Status: No Alcohol use: none Drug use: none - Family History Sister Hx Family Cancer: Yes (breast cancer, renal cancer) Hx Family Endocrine Disorder: Yes (DM) Medications and Allergies Aspirin Enteric Coated [Aspirin EC] 81 mg PO DAILY 10/31/14 [History] Calcium Carbonate/Vitamin D3 [Calcium 600 + D Tablet] 1 tab PO BID 10/31/14 [ History] Escitalopram [Lexapro] 5 mg PO DAILY 10/31/14 [History] Folic Acid 0.4 mg PO DAILY 10/31/14 [History] LORazepam [Ativan] 0.5 mg PO Q6H PRN 10/31/14 [History] Multivit-Min/FA/Lycopen/Lutein [Centrum Silver Tablet] 1 each PO DAILY 10/31/14 [History] Atorvastatin [Lipitor] 10 mg PO HS 05/01/16 [History] hydroCHLOROthiazide [Hydrochlorothiazide] 12.5 mg PO DAILY PRN 05/01/16 [History ] Lisinopril [Zestril] 10 mg PO DAILY 11/03/16 [History] Ondansetron [Zofran] 4 mg PO Q8HR PRN #90 tablet 01/02/17 [Rx] Cranberry Fruit Extract/Vit C [Azo Cranberry Softgel] 1 each PO DAILY 03/04/17 [ History] Docusate [Colace] 100 mg PO BID #60 capsule 04/17/17 [Rx] Magic Mouthwash 10 ml PO Q4HR PRN #400 ml 04/21/17 [Rx] Morphine Sulfate [Arymo ER] 15 mg PO BID 30 Days #60 tab.po.er 07/09/17 [Rx] OxyCODONE Immed Rel [Roxicodone 15 MG] 15 mg PO Q8HR 30 Days #90 tablet [Rx] metroNIDAZOLE [Flagyl] 500 mg PO BID #60 tablet 07/17/17 [Rx] Metoprolol Succinate [Toprol Xl] 150 mg PO DAILY 07/21/17 [History] 3 Allergy/AdvReac Type Severity Reaction Status Date / Time Diclofenac [From Voltaren] Allergy Unknown unknown Verified 07/20/17 20:31 Latex, Natural Rubber Allergy Unknown unknown Verified 07/20/17 20:31 Penicillins [PCN] Allergy Unknown unknown Verified 07/20/17 20:31 Constitutional: Present: anorexia, fatigue, lethargy, malaise, weakness, weight loss. Absent: chills, fever(s), frequent falls Eyes: Absent: change in vision Nose, mouth and throat: Absent: dysphagia Breasts: Present: as per HPI Additional comments: bilateral breast masses, erythema, wu, ulceration to medial right breast Cardiovascular: Absent: chest pain, irregular heart rhythm Respiratory: Present: cough, dyspnea Gastrointestinal: Present: constipation. Absent: abdominal pain, change in bowel habits, hematochezia, melena, nausea, vomiting Genitourinary: Absent: dysuria Musculoskeletal: Present: muscle weakness Integumentary: Present: as per HPI Neurological: Absent: focal weakness, frequent falls Psychiatric: Present: change in appetite Hematologic/Lymphatic: Present: as per HPI Oncology - Exam - Constitutional Vitals: Temp Pulse Resp BP Pulse Ox 99.2 F 77 16 111/57 93 07/21/17 10:23 07/21/17 10:23 07/21/17 10:23 07/21/17 10:23 07/21/17 10:23 General appearance: cooperative, no acute distress, no febrile Exam: fatigued, answers questions appropriately but drowsy - Head Head exam: Present: atraumatic - ENT ENT exam: Present: mucous membranes moist - Respiratory Respiratory exam: Present: CTAB. Absent: respiratory distress - Cardiovascular Cardiovascular exam: Present: RRR, +S1, +S2 - GI/Abdominal GI/Abdominal exam: Present: normal bowel sounds, soft. Absent: tenderness - Extremities Exam Extremities exam: Present: normal inspection. Absent: calf tenderness - Neurological Exam Neurological exam: Present: alert, oriented X3, no focal deficits, strengths equal and symetr throughout - Psychiatric Psychiatric exam: Present: normal affect, normal mood - Skin Skin exam: Present: dry, normal color, warm - Additional findings Additional findings: Breast exam with bilateral masses, erythema, tenderness, ulceration to medial right breast with no active drainage at this time Oncology - Results Labs: Short CBC 07/21/17 Range/Units 01:11 WBC 6.2 (4.3-11.1) K/mcL Hgb 8.1 L (11.5-15.4) g/dL Hct 24.7 L (35.3-44.9) % Plt Count 132 L (140-400) K/mcL Neutrophils # 4.1 (1.6-8.9) K/mcL BMP 07/21/17 01:11 Sodium 137 Potassium 4.0 Chloride 103 Carbon Dioxide 24 BUN 15 Creatinine 0.70 Glucose 87 Calcium 10.2 Cardiac Enzymes 07/21/17 07/21/17 Range/Units 01:11 05:14 Troponin I < 0.03 < 0.03 (< 0.04) ng/mL Consult Discharge Plan - Plan Referrals: Florentino Edwards MD [Primary Care Provider] - (Patient is to call [facility] after discharged to make a follow up appoitment. ) <Karthikeyan,Denise Jayleen - Last Filed: 07/22/17 17:37> Date of Encounter: 07/22/17 - Data of Consult Requesting Physician: Simone Chris MD Primary Care Provider: Florentino Edwards MD - Consult Narrative History of present illness: Ms. Jones is a 76 year old female Oncology - Exam - Constitutional Vitals: Temp Pulse Resp BP Pulse Ox 98.4 F 80 15 106/57 92 07/21/17 15:26 07/21/17 15:26 07/21/17 15:26 07/21/17 15:26 07/21/17 15:26 Oncology - Results Labs: Short CBC 07/21/17 Range/Units 01:11 WBC 6.2 (4.3-11.1) K/mcL Hgb 8.1 L (11.5-15.4) g/dL Hct 24.7 L (35.3-44.9) % Plt Count 132 L (140-400) K/mcL Neutrophils # 4.1 (1.6-8.9) K/mcL BMP 07/21/17 01:11 Sodium 137 Potassium 4.0 Chloride 103 Carbon Dioxide 24 BUN 15 Creatinine 0.70 Glucose 87 Calcium 10.2 Cardiac Enzymes 07/21/17 07/21/17 Range/Units 01:11 05:14 Troponin I < 0.03 < 0.03 (< 0.04) ng/mL - Attending Attestation Refractory mantle cell lymphoma. She progressed through multiple lines of treatment She received her cycle 1 Gemzar and oxaliplatin 07/09/2017. Her neutrophil counts are normal now area platelets 132 and anemia hemoglobin 9.3 2. Acute pulmonary embolism. Patient's with active malignancy do not respond well to Coumadin or new or oral anticoagulation agents. Plan is to keep her on Lovenox for at least a month or more and may transition her to other agents after that 3. Bilateral large breast masses from lymphoma. LDH elevated to 1300 increasing high disease burden. She may be candidate for palliative radiation. Discussed with Dr. Stanley 4. Possible cellulitis in the breast area with ulceration. She was started on vancomycin and cefepime. 5. Oral thrush start Diflucan 200 mg by mouth daily Dehydration. IV fluids
[2017-07-21 14:50] LABS: Folate > 22.3 ng/mL (3.0-16.0)
[2017-07-21 14:51] LABS: Vitamin B12 > 1500 pg/mL (250-1100)
[2017-07-21 14:56] LABS: Ferritin 894 ng/ml (10-120); Iron < 10 mcg/dL (50-170); Lactate Dehydrogenase 1344 Units/L (140-271); Transferrin 129 mg/dL (203-362)
--- NOTE | 2017-07-21 16:18 | Electrocardiograph Report ---
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
--- NOTE | 2017-07-21 16:52 | Internal Med Progress Note ---
Date of Encounter: 07/21/17 Time of Encounter: 16:50 - Assessment and plan (1) Weakness Current Visit: Yes Status: Acute Assessment and plan: Patient has recent chemotherapy treatment as she also has mangle cell lymphoma. This is likely etiology. Complicated with pulmonary embolism as well. Daughters noted that occasionally she seems somnolent. PT/OT when more stable. (2) Pulmonary embolism Current Visit: Yes Status: Acute Assessment and plan: CTA chest was done in the ER, which showed multiple segmental and subsegmental PE in lingluar and LLL pulmonary arteries; interval enlargement in the axillary and chest wall lymphomas; patient will likely require lifelong anticoagulation due to underlying malignancy; check B/L Venous Doppler; start anticoagulation with IV Heparin; supplemental o2 and supportive care; Follow-up echocardiogram Oncology consulted for further recommendations; - Continue Heparin drip for now and monitor for any bleeding. She has hemoglobin from 9.3 to 8.1., will monitor. Daughters noted at some times breast lesions have severe bleeding. We discussed risks and benefits of anticoagulation vs no anticoagulation. Qualifiers: Pulmonary embolism type: other Chronicity: acute Acute cor pulmonale presence: without acute cor pulmonale Qualified Code(s): I26.99 - Other pulmonary embolism without acute cor pulmonale (3) Lymphoma Current Visit: Yes Status: Chronic Assessment and plan: Mantle cell lymphoma, on chemotherapy; progressing; Oncology consult for further recommendations; PT/OT evaluation; Qualifiers: Lymphoma type: non-Hodgkin Non-Hodgkin lymphoma type: non-follicular Non- follicular lymphoma type: mantle cell Lymphoma site: multiple regions Qualified Code(s): C83.18 - Mantle cell lymphoma, lymph nodes of multiple sites (4) CAD (coronary artery disease) Current Visit: Yes Status: Chronic Assessment and plan: continue ASA, statin, beta mayi, ACEI; Qualifiers: Coronary Disease-Associated Artery/Lesion type: [place] artery [place] vs. transplanted heart: [place] heart Associated angina: without angina Qualified Code(s): I25.10 - Atherosclerotic heart disease of [place] coronary artery without angina pectoris (5) Cellulitis of left breast Current Visit: Yes Status: Acute Assessment and plan: She has constant lesions of breasts. The underside of left breast is erythematous with some swelling. Daughter states this is getting worse. Suspect this is cellulitis that is worsening. She is hemodynamically stable, no signs of sepsis, though she does appear somewhat somnolent and lethargic should monitor closely. Wound care consulted Start Vancomycin, Cefepime (Has rashes to penicillings, no anaphylaxis) Follow-up Blood cultures. - Time Spent With Patient Total time spent is greater than 50% in coordination of care (as documented) at patient's floor/unit and/or counseling patient: - Subjective Interval history: Daughters present at bedside. They note she is still weak. Patient states she still has SOB and weakness. Denies fevers/chills. Appetite is poor. - Constitutional Vitals: Temp Pulse Resp BP Pulse Ox 98.4 F 80 15 106/57 92 07/21/17 15:26 07/21/17 15:26 07/21/17 15:26 07/21/17 15:26 07/21/17 15:26 General appearance: Present: A&O X 3, answers questions appropriately Exam: - Respiratory Respiratory exam: Present: CTAB. Absent: accessory muscle use, rales, rhonchi, wheezes - Cardiovascular Cardiovascular exam: Present: RRR, +S1, +S2. Absent: diastolic murmur, gallop, rubs, systolic murmur - GI/Abdominal GI/Abdominal exam: Present: normal bowel sounds, soft, no peritoneal signs. Absent: distended, tenderness - Extremities Exam Extremities exam: Present: full ROM, pedal edema (1+ pitting pedal edema B/L lower legs and ankles), warm, radial pulses palpable and symmetrical. Absent: calf tenderness, cyanotic - Neurological Exam Neurological exam: Present: CN II-XII intact, oriented X3, no focal deficits. Absent: pronater drift, facial droop, speech deficit - Skin Skin exam: Present: dry, intact Additional comments: B/L breasts with fungating erythematous tender masses; right breast- ulcerated mass, there is nonfoul-smelling serous discharge present. left breast - at bottom part of breast is erythematous surrounding lesion. Internal Medicine: Result - Labs CBC & Chem 7: 07/21/17 01:11 07/21/17 01:11 Labs: Short CBC 07/21/17 Range/Units 01:11 WBC 6.2 (4.3-11.1) K/mcL Hgb 8.1 L (11.5-15.4) g/dL Hct 24.7 L (35.3-44.9) % Plt Count 132 L (140-400) K/mcL Neutrophils # 4.1 (1.6-8.9) K/mcL BMP 07/21/17 01:11 Sodium 137 Potassium 4.0 Chloride 103 Carbon Dioxide 24 BUN 15 Creatinine 0.70 Glucose 87 Calcium 10.2 Cardiac Enzymes 07/21/17 07/21/17 Range/Units 01:11 05:14 Troponin I < 0.03 < 0.03 (< 0.04) ng/mL - ABG Interpretation ABG results: PT/INR, D-dimer PT 16.0 Seconds (9.4-12.1) H 07/20/17 18:46 D-Dimer 663 ng/mLFEU (0-500) H 07/21/17 13:52 Consult Discharge Plan - Plan Referrals: Florentino Edwards MD [Primary Care Provider] - ([facility] to [facility] a follow up [facility]oitment. )
[2017-07-21] MEDS: Cefepime HCl 2,000 MG in Water for inj. (sterile) 20 ML 20 ML IVP SCH (17:52)
[2017-07-21 18:16] LABS: Hematocrit 28.1 % (35.3-44.9); Hemoglobin 9.3 g/dL (11.5-15.4)
[2017-07-21] MEDS ORDERED: 0.9 % Sodium Chloride 1,000 ML IVC ONE (19:47)
[2017-07-21] MEDS: Heparin 25,000 UNIT/500 ML D5W 25,000 UNIT/500 ML BAG IVC SCH (23:35)
[2017-07-22 04:57] LABS: Hematocrit 25.9 % (35.3-44.9); Hemoglobin 8.7 g/dL (11.5-15.4); Mean Corpuscular HGB Conc 33.6 g/dL (31.6-35.5); Mean Corpuscular Hemoglobin 29.1 pg (28.0-33.3); Mean Corpuscular Volume 86.6 fL (83.0-100.0); Mean Platelet Volume 11.9 fL (9.4-12.4); Nucleated Red Blood Cells 0.7 /100 WBC (0); Platelet Count 186 K/mcL (140-400); Red Blood Count 2.99 M/mcL (3.82-4.97); Red Cell Distribution Width 14.4 % (11.5-14.5)
[2017-07-22 05:14] LABS: BUN/Creatinine Ratio 19 (6-26); Blood Urea Nitrogen 12 mg/dL (8-23); Calcium 9.4 mg/dL (8.6-10.3); Carbon Dioxide 23 mEq/L (23-29); Chloride 104 mEq/L (98-107); Glucose 68 mg/dL (70-105); Osmolality,Calculated 280 (280-300); Potassium 4.2 mEq/L (3.5-5.1); Sodium 136 mEq/L (136-145); eGFR For African Americans > 60 (> 60); eGFR For Non-African Americans > 60 (> 60)
[2017-07-22] MEDS: Cefepime HCl 2,000 MG in Water for inj. (sterile) 20 ML 20 ML IVP SCH ×2 (05:19→18:28)
[2017-07-22 05:24] LABS: Eosinophils # 0.5 K/mcL (0.0-0.6); Lymphocytes # 0.5 K/mcL (0.6-4.6); Monocytes # 1.2 K/mcL (0.0-1.3); Neutrophils # 5.4 K/mcL (1.6-8.9)
[2017-07-22 05:25] LABS: Hypochromasia Present (Not Present); Platelet Estimate Normal (Normal)
[2017-07-22] MEDS ORDERED: Metoprolol XL (24 HR) Succ 50 MG TAB.ER.24H PO SCH (09:00)
--- NOTE | 2017-07-22 09:06 | Internal Med Progress Note ---
Date of Encounter: 07/22/17 Time of Encounter: 09:05 - Assessment and plan (1) Weakness Current Visit: Yes Status: Acute Assessment and plan: Patient has recent chemotherapy treatment as she also has mangle cell lymphoma. This is likely etiology. Complicated with pulmonary embolism as well. Daughters noted that occasionally she seems somnolent. - Now doing better. Daughters tell me that she is now at baseline. Patient states the same. - PT/OT now patient will be able to participate. - Continue to monitor closely. - Supplemental O2 as needed, continue anticoagulation. - Continue antibiotics: Vancomycin/Cefepime, Flagyl. Will try to de escalate Vanc/Zosyn today or tomorrow and monitor. (2) Pulmonary embolism Current Visit: Yes Status: Acute Assessment and plan: CTA chest was done in the ER, which showed multiple segmental and subsegmental PE in lingluar and LLL pulmonary arteries; interval enlargement in the axillary and chest wall lymphomas; patient will likely require lifelong anticoagulation due to underlying malignancy; check B/L Venous Doppler; start anticoagulation with IV Heparin; supplemental o2 and supportive care; Follow-up echocardiogram Oncology consulted for further recommendations; - Continue Heparin drip for now and monitor for any bleeding. Daughters noted at some times breast lesions have severe bleeding. We discussed risks and benefits of anticoagulation vs no anticoagulation. - Transition to Lovenox SQ therapuetic dose. Qualifiers: Pulmonary embolism type: other Chronicity: acute Acute cor pulmonale presence: without acute cor pulmonale Qualified Code(s): I26.99 - Other pulmonary embolism without acute cor pulmonale (3) Lymphoma Current Visit: Yes Status: Chronic Assessment and plan: Mantle cell lymphoma, on chemotherapy; progressing; Oncology consult for further recommendations; PT/OT evaluation; pending Qualifiers: Lymphoma type: non-Hodgkin Non-Hodgkin lymphoma type: non-follicular Non- follicular lymphoma type: mantle cell Lymphoma site: multiple regions Qualified Code(s): C83.18 - Mantle cell lymphoma, lymph nodes of multiple sites (4) CAD (coronary artery disease) Current Visit: Yes Status: Chronic Assessment and plan: continue ASA, statin, beta mayi, ACEI; Qualifiers: Coronary Disease-Associated Artery/Lesion type: [place] artery [place] vs. transplanted heart: [place] heart Associated angina: without angina Qualified Code(s): I25.10 - Atherosclerotic heart disease of [place] coronary artery without angina pectoris (5) Cellulitis of left breast Current Visit: Yes Status: Acute Assessment and plan: She has constant lesions of breasts. The underside of left breast is erythematous with some swelling. Daughter states this is getting worse. Suspect this is cellulitis that is worsening. She is hemodynamically stable, no signs of sepsis, though she does appear somewhat somnolent and lethargic on admission and now she is returned to her baseline. SIRS 2 criteria (fever, RR) - of note patient has known PE, and this can cause both. WBC may be unreliable as patient was on chemotherapy. Should continue clinical judgment to assess for improvement. - Wound care consulted - Continue Vancomycin, Cefepime (Has rashes to penicillings, no anaphylaxis) - De escalate tomorrow. - Blood cultures: No cultures to date. - Time Spent With Patient Total time spent is greater than 50% in coordination of care (as documented) at patient's floor/unit and/or counseling patient: - Subjective Interval history: 07/21: Daughters present at bedside. They note she is still weak. Patient states she still has SOB and weakness. Denies fevers/chills. Appetite is poor. Was unable to do PT/OT because of mental status. 07/22: Patient feels much better, energy improved and her weakness is significantly better. - Constitutional Vitals: Temp Pulse Resp BP Pulse Ox 99.9 F H 80 18 111/58 98 07/22/17 07:26 07/22/17 07:26 07/22/17 07:26 07/22/17 07:26 07/22/17 07:26 General appearance: Present: A&O X 3, answers questions appropriately Exam: General appearance: Present: A&O X 3, answers questions appropriately Exam: - Respiratory Respiratory exam: Present: CTAB. Absent: accessory muscle use, rales, rhonchi, wheezes - Cardiovascular Cardiovascular exam: Present: RRR, +S1, +S2. Absent: diastolic murmur, gallop, rubs, systolic murmur - GI/Abdominal GI/Abdominal exam: Present: normal bowel sounds, soft, no peritoneal signs. Absent: distended, tenderness - Extremities Exam Extremities exam: Present: full ROM, pedal edema (1+ pitting pedal edema B/L lower legs and ankles), warm, radial pulses palpable and symmetrical. Absent: calf tenderness, cyanotic - Neurological Exam Neurological exam: Present: CN II-XII intact, oriented X3, no focal deficits. Absent: pronater drift, facial droop, speech deficit - Skin Skin exam: Present: dry, intact Additional comments: B/L breasts with fungating erythematous tender masses; right breast- ulcerated mass, there is nonfoul-smelling serous discharge present. left breast - at bottom part of breast is erythematous surrounding lesion. Slightly better than yesterday in regards to erythema surrounding the ulceration. Internal Medicine: Result - Labs CBC & Chem 7: 07/22/17 04:44 07/22/17 04:44 Labs: Short CBC 07/21/17 07/22/17 Range/Units 18:03 04:44 WBC 7.5 (4.3-11.1) K/mcL Hgb 9.3 L 8.7 L (11.5-15.4) g/dL Hct 28.1 L 25.9 L (35.3-44.9) % Plt Count 186 (140-400) K/mcL Neutrophils # 5.4 (1.6-8.9) K/mcL BMP 07/22/17 04:44 Sodium 136 Potassium 4.2 Chloride 104 Carbon Dioxide 23 BUN 12 Creatinine 0.64 Glucose 68 L Calcium 9.4 - ABG Interpretation ABG results: PT/INR, D-dimer PT 16.0 Seconds (9.4-12.1) H 07/20/17 18:46 D-Dimer 663 ng/mLFEU (0-500) H 07/21/17 13:52 Consult Discharge Plan - Plan Referrals: Florentino Edwards MD [Primary Care Provider] - (Patient is to call [facility] after discharged to make a follow up appoitment. )
[2017-07-22] MEDS: *HR* Morphine Sulfate SR (12 HR) 15 MG TABLET.ER PO SCH ×2 (09:38→21:12)
[2017-07-22] MEDS: Folic Acid 1 MG TABLET PO SCH (09:39)
[2017-07-22] MEDS: Aspirin Enteric Coated 81 MG Tablet PO SCH (09:39)
[2017-07-22] MEDS: metroNIDAZOLE 500 MG TABLET PO SCH (09:39)
[2017-07-22] MEDS: Multivit/Ca/Min/Fe/FA 1 TAB TABLET PO SCH (09:40)
[2017-07-22] MEDS: *HR* Enoxaparin 60 MG/0.6 ML SYRINGE SQ SCH ×2 (10:08→18:27)
[2017-07-22] MEDS: *HR* OxyCODONE Immed Rel 15 MG TABLET PO PRN (12:36)
--- NOTE | 2017-07-22 14:36 | Oncology Inp Progress Note ---
Date of Encounter: 07/22/17 Time of Encounter: 14:10 (1) Pulmonary embolism Current Visit: Yes Status: Acute Assessment and plan: CTA reveals Acute segmental and subsegmental pulmonary emboli in the lingula and left lower lobe pulmonary arteries. No evidence of pulmonary infarct or right heart strain. Troponin <0.03 Echo-LVED 65%, normal right ventricular structure and function Now transitioned to lovenox Plan to discharge on lovenox for 1-2 months until transition to DOAC Qualifiers: Pulmonary embolism type: other Chronicity: acute Acute cor pulmonale presence: without acute cor pulmonale Qualified Code(s): I26.99 - Other pulmonary embolism without acute cor pulmonale (2) Lymphoma Current Visit: Yes Status: Chronic Assessment and plan: Refractory. Multiple previous lines of therapy as detailed in HPI. She most recently started treatment with Gemzar/ oxaliplatin cycle one 07/09/2017 following recommendation from [facility]. Gemzar and oxaliplatin had to be dose reduced due to bleeding as well as thrombocytopenia. Her performance status has appeared to have declined significantly since starting GemOx. CTA on admission reveals interval enlargement of anterior chest wall and axillary soft tissue masses, and new adrenal nodules, most likely lymphomatous. LDH elevated above baseline at 1344. Updated primary medical oncologist and radiation oncologist on patients admission. She will plan to follow up with radiation on outpatient basis for role for palliative radiotherapy to breast masses/adenopathy. Patients family concerned over her decline in PS since her most recent systemic treatment. Patient is more alert and active today than assessment yesterday. Encouraged patient to continue to work with PT/OT and to monitor her continued improvement with ATB and AC. Patient will benefit from further discussions with primary treating team regarding her desire for continued systemic treatment and her ability to physically tolerate treatments. Dependant upon her improvement these discussions may be held inpatient as well. Qualifiers: Lymphoma type: non-Hodgkin Non-Hodgkin lymphoma type: non-follicular Non- follicular lymphoma type: mantle cell Lymphoma site: multiple regions Qualified Code(s): C83.18 - Mantle cell lymphoma, lymph nodes of multiple sites (3) Anemia Current Visit: Yes Status: Acute Assessment and plan: Hgb, decreased from normal baseline, stable today. Occult stool blood-pending May be secondary to gemzer/oxaliplatin received on 07/09 Folate and B12 elevated-acute phase reactant. Iron <10, ferritin 894 Qualifiers: Qualified Code(s): D64.9 - Anemia, unspecified (4) Cellulitis of left breast Current Visit: Yes Status: Acute Assessment and plan: TMAX 103.1 in past 24 hours ANC normal Primary team started vanc/cefepime/flagyl She is clinically improving following ATB initiation, more alert today, MS back to baseline per family Wound care consulted Blood cultures obtained H/O bleeding to breast lesions/ulcer-no bleeding presently, continue to monitor closely Oncology: Subj Interval history: Ms. Jones is resting comfortably in bed. Her daughters are at bedside. She is much more alert than assessment yesterday. She reports pain this morning to her right breast and rigth axilla but this has improved with pain medication. She denies pain or SOB. - Constitutional Vitals: Vital Signs Temp Pulse Resp BP Pulse Ox 07/22/17 11:34 99.5 F 78 18 111/57 96 07/22/17 07:26 99.9 F H 80 18 111/58 98 07/22/17 03:00 98.4 F 79 16 101/55 100 07/21/17 23:10 98.2 F 77 15 102/53 98 07/21/17 19:37 103.1 F H 88 16 129/67 97 07/21/17 15:26 98.4 F 80 15 106/57 92 Intake and Output 07/21/17 07/22/17 07/22/17 23:59 07:59 15:59 Intake Total 1470.3 / 1470.3 285 / 285 550 / 550 Output Total 350 / 350 0 / 0 Balance 1120.3 / 1120.3 285 / 285 550 / 550 Intake: IV Fluids 1470.3 / 1470.3 185 / 185 70 / 70 0.9 % Sodium Chloride 1,000 ML 1000 / 1000 @ 500 mls/hr IVC .Q2H ONE Rx#: [id number] Heparin 25,000 UNIT/500 ML D5W 200.3 / 200.3 165 / 165 70 / 70 25,000 unit In 500 ml @ 14 UNIT /KG/HR 17.654 mls/hr IVC .Q24H MO Rx#:[id number] Maxipime 2,000 MG In Water for 20 / 20 20 / 20 inj. (sterile) 20 ML @ 300 mls/ hr IVP Q12HR MO Rx#:[id number] Vancocin 1,000 MG In 0.9 % 250 / 250 Sodium Chloride 250 ML @ 167 mls/hr IVPB Q12HR MO Rx#: [id number] Oral 0 / 0 100 / 100 480 / 480 Output: Urine 350 / 350 0 / 0 Other: Meal Lunch Percent of Meal Consumed 15% # Voids 1 Weight 63.412 kg Blood Glucose* 65 Patient Weight 07/22/17 23:59 Weight 63.412 kg General appearance: cooperative, no acute distress, no febrile - Head Head exam: Present: atraumatic - ENT ENT exam: Present: mucous membranes moist - Respiratory Respiratory exam: Present: CTAB. Absent: respiratory distress - Cardiovascular Cardiovascular exam: Present: RRR, +S1, +S2 - GI/Abdominal GI/Abdominal exam: Present: normal bowel sounds, soft. Absent: tenderness - Extremities Exam Extremities exam: Present: normal inspection. Absent: calf tenderness - Neurological Exam Neurological exam: Present: alert, oriented X3, no focal deficits, strengths equal and symetr throughout - Psychiatric Psychiatric exam: Present: normal affect, normal mood - Skin Skin exam: Present: dry, intact, normal color, warm - Additional findings Additional findings: bilateral breast masses, right axillary adenopathy Oncology: Obj Data - Labs CBC & Chem 7: 07/23/17 04:50 07/23/17 04:50 - Impressions Impressions Echocardiogram 07/20/17 23:41 Impressions: LVEF 65%. Normal LV chamber size and function. Mild concentric left ventricular hypertrophy. Normal right ventricular structure and function. No evidence of pulmonary hypertension. No significant valvular dysfunction. Left Ventricular Wall Motion: Rest Echo Findings All wall segments showed normal motion. Findings: Study Quality * Technically sub-optimal study. Apical images not obtained due to mass. ECG Findings * Normal sinus rhythm. Left Ventricle * LVEF 65%. * Normal LV chamber size and function. * Mild concentric left ventricular hypertrophy. * Diastolic function not assessed. Right Ventricle * Normal right ventricular structure and function. Left Atrium * Normal left atrial size. Right Atrium * Normal right atrial size. Aortic Valve * Aortic valve not well visualized. * No aortic regurgitation. * No aortic stenosis. Mitral Valve * Mildly thickened mitral valve leaflets. * Mild mitral annular calcification. * No mitral regurgitation. * No mitral stenosis. Tricuspid Valve * Normal tricuspid valve structure and function. * Trace tricuspid regurgitation. * No evidence of pulmonary hypertension. Pulmonic Valve * Normal pulmonic valve structure and function. * No pulmonic regurgitation. Aorta * Normally sized aortic root. Pericardium * The pericardium appears normal. IVC * Normal IVC dimensions and inspiratory collapse. Pulmonary Artery * Normal visualized portions of the main pulmonary artery. - ABG Interpretation ABG results: PT/INR, D-dimer PT 16.0 Seconds (9.4-12.1) H 07/20/17 18:46 D-Dimer 663 ng/mLFEU (0-500) H 07/21/17 13:52 Consult Discharge Plan - Plan Referrals: Florentino Edwards MD [Primary Care Provider] - (Patient is to call [facility] after discharged to make a follow up appoitment. )
[2017-07-23] MEDS: Cefepime HCl 2,000 MG in Water for inj. (sterile) 20 ML 20 ML IVP SCH (06:10)
[2017-07-23] MEDS: *HR* Enoxaparin 60 MG/0.6 ML SYRINGE SQ SCH (06:19)
[2017-07-23 06:37] LABS: Eosinophils # 0.1 K/mcL (0.0-0.6); Hematocrit 25.6 % (35.3-44.9); Hemoglobin 8.4 g/dL (11.5-15.4); Mean Corpuscular HGB Conc 32.8 g/dL (31.6-35.5); Mean Corpuscular Hemoglobin 28.7 pg (28.0-33.3); Mean Corpuscular Volume 87.4 fL (83.0-100.0); Mean Platelet Volume 12.7 fL (9.4-12.4); Nucleated Red Blood Cells 0.2 /100 WBC (0); Platelet Count 210 K/mcL (140-400); Red Blood Count 2.93 M/mcL (3.82-4.97); Red Cell Distribution Width 14.6 % (11.5-14.5)
[2017-07-23 06:40] LABS: BUN/Creatinine Ratio 20 (6-26); Blood Urea Nitrogen 15 mg/dL (8-23); Calcium 9.2 mg/dL (8.6-10.3); Carbon Dioxide 20 mEq/L (23-29); Chloride 102 mEq/L (98-107); Glucose 42 mg/dL (70-105); Osmolality,Calculated 276 (280-300); Potassium 4.6 mEq/L (3.5-5.1); Sodium 134 mEq/L (136-145); eGFR For African Americans > 60 (> 60); eGFR For Non-African Americans > 60 (> 60)
[2017-07-23 07:26] LABS: Hypersegmented Neutrophils Present (Not Present); Lymphocytes # 0.7 K/mcL (0.6-4.6); Monocytes # 0.9 K/mcL (0.0-1.3); Neutrophils # 6.7 K/mcL (1.6-8.9); Platelet Estimate Normal (Normal)
[2017-07-23] MEDS ORDERED: Aminoglycoside Consult 1 EACH MC ONE (08:01)
[2017-07-23] MEDS: *HR* Morphine Sulfate SR (12 HR) 15 MG TABLET.ER PO SCH ×2 (09:07→20:39)
[2017-07-23] MEDS: Aspirin Enteric Coated 81 MG Tablet PO SCH (09:08)
[2017-07-23] MEDS: Multivit/Ca/Min/Fe/FA 1 TAB TABLET PO SCH (09:08)
[2017-07-23] MEDS: Folic Acid 1 MG TABLET PO SCH (09:08)
--- NOTE | 2017-07-23 15:23 | Internal Med Progress Note ---
Date of Encounter: 07/23/17 Time of Encounter: 15:19 - Assessment and plan (1) Acute metabolic encephalopathy Current Visit: Yes Status: Acute Assessment and plan: This was present on admission, described as Unsure of cause, but could be from cellulitis/sepsis (SIRS 2 fever, RR). Could also be from chronic illness or delerium. Will continue to monitor, will do neurochecks as well. Neuro exam today was normal. She may be waxing and waning Continue antibiotic therapy - de escalate to Bactrim/Keflex Neurochecks Supplemental O2 as needed. (2) Pulmonary embolism Current Visit: Yes Status: Acute Assessment and plan: CTA chest was done in the ER, which showed multiple segmental and subsegmental PE in lingluar and LLL pulmonary arteries; interval enlargement in the axillary and chest wall lymphomas; patient will likely require lifelong anticoagulation due to underlying malignancy; check B/L Venous Doppler; start anticoagulation with IV Heparin; supplemental o2 and supportive care; Echocardiogram unremarkable. Oncology consulted for further recommendations; 07/23: Patient has had excessive bleeding from the breast that has been difficult for nursing to control. Will hold off from anticoagulation and monitor H&H. Risks of anticoagulation at this point outweigh the benefits of coagulation. Patient does not have any signs or symptoms of hypoxia or heart strain. Qualifiers: Pulmonary embolism type: other Chronicity: acute Acute cor pulmonale presence: without acute cor pulmonale Qualified Code(s): I26.99 - Other pulmonary embolism without acute cor pulmonale (3) Weakness Current Visit: Yes Status: Acute Assessment and plan: Patient has recent chemotherapy treatment as she also has mangle cell lymphoma. This is likely etiology. Complicated with pulmonary embolism as well. Daughters noted that occasionally she seems somnolent. - Now doing better. Daughters tell me that she is now at baseline. Patient states the same. - PT/OT now patient will be able to participate. - Continue to monitor closely. - Supplemental O2 as needed, continue anticoagulation. - Continue antibiotics: Vancomycin/Cefepime, Flagyl. Will try to de escalate Vanc/Zosyn today or tomorrow and monitor. (4) Lymphoma Current Visit: Yes Status: Chronic Assessment and plan: Mantle cell lymphoma, on chemotherapy; progressing; Oncology consult for further recommendations; PT/OT evaluation Poor prognosis Family is having discussion if she should seek Palliative consult possibly home with hospice. Qualifiers: Lymphoma type: non-Hodgkin Non-Hodgkin lymphoma type: non-follicular Non- follicular lymphoma type: mantle cell Lymphoma site: multiple regions Qualified Code(s): C83.18 - Mantle cell lymphoma, lymph nodes of multiple sites (5) Cellulitis of left breast Current Visit: Yes Status: Acute Assessment and plan: She has constant lesions of breasts. The underside of left breast is erythematous with some swelling. Daughter states this is getting worse. Suspect this is cellulitis that is worsening. She is hemodynamically stable, no signs of sepsis, though she does appear somewhat somnolent and lethargic on admission and now she is returned to her baseline. SIRS 2 criteria (fever, RR) - of note patient has known PE, and this can cause both. WBC may be unreliable as patient was on chemotherapy. Should continue clinical judgment to assess for improvement - Blood cultures: No growth to date de escalate: dc vanc/zosyn, start bactrim/keflex (6) CAD (coronary artery disease) Current Visit: Yes Status: Chronic Assessment and plan: continue ASA, statin, beta mayi, ACEI; Qualifiers: Coronary Disease-Associated Artery/Lesion type: [place] artery [place] vs. transplanted heart: [place] heart Associated angina: without angina Qualified Code(s): I25.10 - Atherosclerotic heart disease of [place] coronary artery without angina pectoris - Time Spent With Patient Total time spent is greater than 50% in coordination of care (as documented) at patient's floor/unit and/or counseling patient: - Subjective Interval history: 07/21: Daughters present at bedside. They note she is still weak. Patient states she still has SOB and weakness. Denies fevers/chills. Appetite is poor. Was unable to do PT/OT because of mental status. 07/22: Patient feels much better, energy improved and her weakness is significantly better. 07/23: daughter reported that patient did have episode of confusion overnight but she was not somnolent. Today nursing reports she had excessive bleeding from her right breast that continued to bleed despite applied pressure. Bleeding currently stopped. I cannot assess because the dressing cannot be removed. - Constitutional Vitals: Temp Pulse Resp BP Pulse Ox 98.6 F 75 18 93/49 96 07/23/17 14:51 07/23/17 14:51 07/23/17 14:51 07/23/17 14:51 07/23/17 14:51 General appearance: Present: A&O X 3, answers questions appropriately Exam: Respiratory Respiratory exam: Present: CTAB. Absent: accessory muscle use, rales, rhonchi, wheezes - Extremities Exam Extremities exam: Present: full ROM, pedal edema (1+ pitting pedal edema B/L lower legs and ankles), warm, radial pulses palpable and symmetrical. Absent: calf tenderness, cyanotic - Neurological Exam Neurological exam: Present: CN II-XII intact, oriented X3, no focal deficits. Absent: pronater drift, facial droop, speech deficit - Skin Skin exam: Present: dry, intact Additional comments: B/L breasts with fungating erythematous tender masses; right breast- ulcerated mass, there is nonfoul-smelling serous discharge present. Unable to assess lesion today from excessive bleeding under the dressing. left breast - at bottom part of breast is erythematous surrounding lesion. Slightly better than yesterday in regards to erythema surrounding the ulceration. - Neurological Exam Neurological exam: Present: CN II-XII intact, oriented X3, no focal deficits. Absent: pronater drift, facial droop, speech deficit Internal Medicine: Result - Labs CBC & Chem 7: 07/23/17 04:50 07/23/17 04:50 Labs: Short CBC 07/23/17 Range/Units 04:50 WBC 8.4 (4.3-11.1) K/mcL Hgb 8.4 L (11.5-15.4) g/dL Hct 25.6 L (35.3-44.9) % Plt Count 210 (140-400) K/mcL Neutrophils # 6.7 (1.6-8.9) K/mcL BMP 07/23/17 04:50 Sodium 134 L Potassium 4.6 Chloride 102 Carbon Dioxide 20 L BUN 15 Creatinine 0.74 Glucose 42 L Calcium 9.2 - ABG Interpretation ABG results: PT/INR, D-dimer PT 16.0 Seconds (9.4-12.1) H 07/20/17 18:46 D-Dimer 663 ng/mLFEU (0-500) H 07/21/17 13:52 Consult Discharge Plan - Plan Referrals: Florentino Edwards MD [Primary Care Provider] - (Patient is to call [facility] after discharged to make a follow up appoitment. )
[2017-07-23] MEDS: Sulfamethoxazole/Trimeth DS 1 EACH TABLET PO SCH (20:39)
[2017-07-23] MEDS: cephALEXin 500 MG CAPSULE PO SCH (20:39)
[2017-07-24 05:27] LABS: Basophils % 0.2 %; Eosinophils # 0.1 K/mcL (0.0-0.6); Eosinophils % 1.5 %; Hematocrit 25.8 % (35.3-44.9); Hemoglobin 8.6 g/dL (11.5-15.4); Lymphocytes % 12.3 %; Mean Corpuscular HGB Conc 33.3 g/dL (31.6-35.5); Mean Corpuscular Hemoglobin 28.9 pg (28.0-33.3); Mean Corpuscular Volume 86.6 fL (83.0-100.0); Monocytes # 1.5 K/mcL (0.0-1.3); Monocytes % 17.9 %; Neutrophils # 4.9 K/mcL (1.6-8.9); Platelet Count 238 K/mcL (140-400); Red Blood Count 2.98 M/mcL (3.82-4.97); Red Cell Distribution Width 14.9 % (11.5-14.5); Segmented Neutrophils % 60.1 %
[2017-07-24 05:47] LABS: BUN/Creatinine Ratio 19 (6-26); Blood Urea Nitrogen 15 mg/dL (8-23); Calcium 9.5 mg/dL (8.6-10.3); Carbon Dioxide 20 mEq/L (23-29); Chloride 104 mEq/L (98-107); Glucose 65 mg/dL (70-105); Osmolality,Calculated 275 (280-300); Potassium 4.5 mEq/L (3.5-5.1); Sodium 133 mEq/L (136-145); eGFR For African Americans > 60 (> 60); eGFR For Non-African Americans > 60 (> 60)
[2017-07-24 06:05] LABS: Hypochromasia Present (Not Present); Platelet Estimate Normal (Normal)
[2017-07-24] MEDS ORDERED: D5% in 0.9% NACL 1,000 ML IVC SCH (09:30)
[2017-07-24] MEDS: *HR* Morphine Sulfate SR (12 HR) 15 MG TABLET.ER PO SCH ×2 (09:38→22:07)
[2017-07-24] MEDS: Sulfamethoxazole/Trimeth DS 1 EACH TABLET PO SCH ×2 (09:38→22:07)
[2017-07-24] MEDS: Aspirin Enteric Coated 81 MG Tablet PO SCH (09:38)
[2017-07-24] MEDS: Folic Acid 1 MG TABLET PO SCH (09:39)
[2017-07-24] MEDS: cephALEXin 500 MG CAPSULE PO SCH ×3 (09:39→22:46)
[2017-07-24] MEDS: Multivit/Ca/Min/Fe/FA 1 TAB TABLET PO SCH (09:39)
[2017-07-24] MEDS: Metoprolol XL (24 HR) Succ 50 MG TAB.ER.24H PO SCH (09:42)
--- NOTE | 2017-07-24 09:42 | Internal Med Progress Note ---
Date of Encounter: 07/24/17 Time of Encounter: 09:38 - Assessment and plan (1) Acute metabolic encephalopathy Current Visit: Yes Status: Acute Assessment and plan: This was present on admission, described as Unsure of cause, but could be from cellulitis/sepsis (SIRS 2 fever, RR). Could also be from chronic illness or delerium. Will continue to monitor, will do neurochecks as well. Neuro exam today was normal., Neurochecks - have not been abnormal. Supplemental O2 as needed. If any further episodes, will get CT head. Continue Bactirm/Keflex (2) Pulmonary embolism Current Visit: Yes Status: Acute Assessment and plan: CTA chest was done in the ER, which showed multiple segmental and subsegmental PE in lingluar and LLL pulmonary arteries; interval enlargement in the axillary and chest wall lymphomas; patient will likely require lifelong anticoagulation due to underlying malignancy; check B/L Venous Doppler; start anticoagulation with IV Heparin; supplemental o2 and supportive care; Echocardiogram unremarkable. Oncology consulted for further recommendations; 07/23: Patient has had excessive bleeding from the breast that has been difficult for nursing to control. Will hold off from anticoagulation and monitor H&H. Risks of anticoagulation at this point outweigh the benefits of coagulation. Patient does not have any signs or symptoms of hypoxia or heart strain. 5:11: no CP, SOB. Is hemodynamically stable. Lovenox held from severe breast lesion bleeding. Qualifiers: Pulmonary embolism type: other Chronicity: acute Acute cor pulmonale presence: without acute cor pulmonale Qualified Code(s): I26.99 - Other pulmonary embolism without acute cor pulmonale (3) Weakness Current Visit: Yes Status: Acute Assessment and plan: Was unable to work with PT/OT on 07/23 because of acute bleeding. Will try again today since anticoagulation has been held. (4) Lymphoma Current Visit: Yes Status: Chronic Assessment and plan: Mantle cell lymphoma, on chemotherapy; progressing; Oncology consult for further recommendations; PT/OT evaluation Poor prognosis Family is having discussion if she should seek Palliative consult possibly home with hospice. Qualifiers: Lymphoma type: non-Hodgkin Non-Hodgkin lymphoma type: non-follicular Non- follicular lymphoma type: mantle cell Lymphoma site: multiple regions Qualified Code(s): C83.18 - Mantle cell lymphoma, lymph nodes of multiple sites (5) Cellulitis of left breast Current Visit: Yes Status: Acute Assessment and plan: She has constant lesions of breasts. The underside of left breast is erythematous with some swelling. Daughter states this is getting worse. Suspect this is cellulitis that is worsening. She is hemodynamically stable, no signs of sepsis, though she does appear somewhat somnolent and lethargic on admission and now she is returned to her baseline. SIRS 2 criteria (fever, RR) - of note patient has known PE, and this can cause both. WBC may be unreliable as patient was on chemotherapy. Should continue clinical judgment to assess for improvement - Blood cultures: No growth to date de escalate: dc vanc/zosyn, start bactrim/keflex (6) CAD (coronary artery disease) Current Visit: Yes Status: Chronic Assessment and plan: continue ASA, statin, beta mayi, ACEI; Qualifiers: Coronary Disease-Associated Artery/Lesion type: [place] artery [place] vs. transplanted heart: [place] heart Associated angina: without angina Qualified Code(s): I25.10 - Atherosclerotic heart disease of [place] coronary artery without angina pectoris - Time Spent With Patient Total time spent is greater than 50% in coordination of care (as documented) at patient's floor/unit and/or counseling patient: - Subjective Interval history: 07/21: Daughters present at bedside. They note she is still weak. Patient states she still has SOB and weakness. Denies fevers/chills. Appetite is poor. Was unable to do PT/OT because of mental status. 07/22: Patient feels much better, energy improved and her weakness is significantly better. 07/23: daughter reported that patient did have episode of confusion overnight but she was not somnolent. Today nursing reports she had excessive bleeding from her right breast that continued to bleed despite applied pressure. Bleeding currently stopped. I cannot assess because the dressing cannot be removed. 5:11: no acute events overnight, bleeding from right breast stopped yesterday. No altered mental status episodes but patient states still feeling weak. - Constitutional Vitals: Temp Pulse Resp BP Pulse Ox 98.4 F 76 16 125/71 97 07/24/17 06:46 07/24/17 06:46 07/24/17 06:46 07/24/17 06:46 07/24/17 06:46 General appearance: Present: A&O X 3, answers questions appropriately Exam: Respiratory Respiratory exam: Present: CTAB. Absent: accessory muscle use, rales, rhonchi, wheezes - Extremities Exam Extremities exam: Present: full ROM, pedal edema (1+ pitting pedal edema B/L lower legs and ankles), warm, radial pulses palpable and symmetrical. Absent: calf tenderness, cyanotic - Neurological Exam Neurological exam: Present: CN II-XII intact, oriented X3, no focal deficits. Absent: pronater drift, facial droop, speech deficit - Skin Skin exam: Present: dry, intact Additional comments: B/L breasts with fungating erythematous tender masses; right breast- ulcerated mass, there is nonfoul-smelling serous discharge present. Unable to assess lesion today from excessive bleeding under the dressing. left breast - at bottom part of breast is erythematous surrounding lesion. Slightly better than yesterday in regards to erythema surrounding the ulceration. - Neurological Exam Neurological exam: Present: CN II-XII intact, oriented X3, no focal deficits. Absent: pronater drift, facial droop, speech deficit Internal Medicine: Result - Labs CBC & Chem 7: 07/24/17 04:43 07/24/17 04:43 Labs: Short CBC 07/24/17 Range/Units 04:43 WBC 8.2 (4.3-11.1) K/mcL Hgb 8.6 L (11.5-15.4) g/dL Hct 25.8 L (35.3-44.9) % Plt Count 238 (140-400) K/mcL Neutrophils # 4.9 (1.6-8.9) K/mcL BMP 07/24/17 04:43 Sodium 133 L Potassium 4.5 Chloride 104 Carbon Dioxide 20 L BUN 15 Creatinine 0.81 Glucose 65 L Calcium 9.5 - ABG Interpretation ABG results: PT/INR, D-dimer PT 16.0 Seconds (9.4-12.1) H 07/20/17 18:46 D-Dimer 663 ng/mLFEU (0-500) H 07/21/17 13:52 Consult Discharge Plan - Plan Referrals: Florentino Edwards MD [Primary Care Provider] - ([facility] follow up [facility]. )
[2017-07-25 06:50] LABS: BUN/Creatinine Ratio 16 (6-26); Blood Urea Nitrogen 13 mg/dL (8-23); Calcium 9.2 mg/dL (8.6-10.3); Carbon Dioxide 22 mEq/L (23-29); Chloride 105 mEq/L (98-107); Glucose 98 mg/dL (70-105); Osmolality,Calculated 274 (280-300); Potassium 4.2 mEq/L (3.5-5.1); Sodium 132 mEq/L (136-145); eGFR For African Americans > 60 (> 60); eGFR For Non-African Americans > 60 (> 60)
[2017-07-25 07:17] LABS: Eosinophils # 0.1 K/mcL (0.0-0.6); Hematocrit 24.2 % (35.3-44.9); Hemoglobin 7.7 g/dL (11.5-15.4); Lymphocytes # 0.7 K/mcL (0.6-4.6); Mean Corpuscular HGB Conc 31.8 g/dL (31.6-35.5); Mean Corpuscular Hemoglobin 27.4 pg (28.0-33.3); Mean Corpuscular Volume 86.1 fL (83.0-100.0); Mean Platelet Volume 12.1 fL (9.4-12.4); Platelet Count 255 K/mcL (140-400); Red Blood Count 2.81 M/mcL (3.82-4.97); Red Cell Distribution Width 14.7 % (11.5-14.5)
[2017-07-25 08:29] LABS: Monocytes # 1.8 K/mcL (0.0-1.3); Neutrophils # 4.2 K/mcL (1.6-8.9); Platelet Estimate Normal (Normal)
[2017-07-25] MEDS: Metoprolol XL (24 HR) Succ 50 MG TAB.ER.24H PO SCH (09:12)
[2017-07-25] MEDS: Folic Acid 1 MG TABLET PO SCH (09:15)
[2017-07-25] MEDS: Sulfamethoxazole/Trimeth DS 1 EACH TABLET PO SCH ×2 (09:25→20:28)
[2017-07-25] MEDS: cephALEXin 500 MG CAPSULE PO SCH ×3 (09:25→20:27)
[2017-07-25] MEDS: Aspirin Enteric Coated 81 MG Tablet PO SCH (09:25)
[2017-07-25] MEDS: *HR* Morphine Sulfate SR (12 HR) 15 MG TABLET.ER PO SCH ×2 (09:26→20:28)
[2017-07-25] MEDS: Multivit/Ca/Min/Fe/FA 1 TAB TABLET PO SCH (09:26)
--- NOTE | 2017-07-25 12:29 | Oncology Inp Progress Note ---
Date of Encounter: 07/25/17 Time of Encounter: 12:25 (1) Pulmonary embolism Current Visit: Yes Status: Acute Assessment and plan: CTA revealed acute segmental and subsegmental pulmonary emboli in the lingula and left lower lobe pulmonary arteries. No evidence of pulmonary infarct or right heart strain. She was placed on lovenox complicated by breast wound bleeding and was discontinued. Qualifiers: Pulmonary embolism type: other Chronicity: acute Acute cor pulmonale presence: without acute cor pulmonale Qualified Code(s): I26.99 - Other pulmonary embolism without acute cor pulmonale (2) Cellulitis of left breast Current Visit: Yes Status: Acute Assessment and plan: Lymphoma compounded by cellulitis. Improving and has been transitioned to Keflex. (3) Lymphoma Current Visit: Yes Status: Chronic Assessment and plan: Refractory mantle cell lymphoma. She most recently started treatment with Gemzar/ oxaliplatin cycle one 07/09/2017 following recommendation from [facility]. Gemzar and oxaliplatin had to be dose reduced due to bleeding as well as thrombocytopenia. This was not well tolerated. Plan for now is to discharge to rehab. [facility] rehab will not be ideal secondary to lymphoma and inability to treat while in rehab. She will meet with Dr. Stanley and Dr. Dumont after discharge to discuss palliative radiotherapy Hopefully dc soon pending placement. I will make sure she has f/u scheduled. Will otherwise sign off. Please call with questions. Qualifiers: Lymphoma type: non-Hodgkin Non-Hodgkin lymphoma type: non-follicular Non- follicular lymphoma type: mantle cell Lymphoma site: multiple regions Qualified Code(s): C83.18 - Mantle cell lymphoma, lymph nodes of multiple sites Oncology: Subj Interval history: Feeling much better today. Has ambulated to the bedside commode with one person assist which is an improvement. Pain controlled with MS contin and oxycodone. No overt bleeding but did have oozing with dressing change of the breast. Eating better. No SOB and minimal ABERNATHY. No orthopnea or PND. Lovenox has been discontinued secondary to bleeding. - Constitutional Vitals: Vital Signs Temp Pulse Resp BP Pulse Ox 07/25/17 10:43 97.9 F 80 14 101/52 93 07/25/17 07:33 98.5 F 79 14 102/51 95 07/25/17 04:18 98.2 F 84 14 104/61 93 07/24/17 23:17 98.3 F 82 16 107/65 93 07/24/17 18:44 98.0 F 76 16 96/57 97 07/24/17 16:29 98.1 F 73 16 97/51 96 Intake and Output 07/25/17 07/25/17 07/25/17 00:59 08:59 16:59 Intake Total 0 / 0 220 / 220 0 / 0 Output Total 200 / 200 200 / 200 Balance -200 / -200 20 / 20 0 / 0 Intake: Oral 0 / 0 220 / 220 0 / 0 Output: Urine 200 / 200 200 / 200 Other: Meal Breakfast Percent of Meal Consumed 20% # Voids 1 # Bowel Movements 0 Weight 65.4 kg Patient Weight 07/26/17 00:59 Weight 65.4 kg General appearance: average body habitus, cooperative, no acute distress - Head Head exam: Present: atraumatic, normal inspection, normocephalic - Eye Eye exam: Present: normal appearance, conjuntiva pink, sclera anicteric - ENT ENT exam: Present: mucous membranes moist, normal oropharynx - Neck Neck exam: Present: full ROM - Respiratory Respiratory exam: Present: CTAB - Cardiovascular Cardiovascular exam: Present: RRR - GI/Abdominal GI/Abdominal exam: Present: normal bowel sounds, soft - Neurological Exam Neurological exam: Present: alert, CN II-XII intact, oriented X3, no focal deficits - Skin Skin exam: Present: normal color (Breast wounds bandaged without oozing) Oncology: Obj Data - Labs CBC & Chem 7: 07/25/17 06:21 07/25/17 06:21 Labs: Laboratory Results - last 24 hr 07/25/17 07/25/17 06:21 06:21 WBC 6.8 RBC 2.81 L Hgb 7.7 L Hct 24.2 L MCV 86.1 MCH 27.4 L MCHC 31.8 RDW 14.7 H Plt Count 255 MPV 12.1 Seg Neutrophils % 62.0 Lymphocytes % 10.0 Monocytes % 26.0 Eosinophils % 2.0 Neutrophils # 4.2 Lymphocytes # 0.7 Monocytes # 1.8 H Eosinophils # 0.1 Platelet Estimate Normal Sodium 132 L Potassium 4.2 Chloride 105 Carbon Dioxide 22 L BUN 13 Creatinine 0.80 Est GFR ( Amer) > 60 Est GFR (Non-Af Amer) > 60 BUN/Creatinine Ratio 16 Glucose 98 Calculated Osmolality 274 L Calcium 9.2 - ABG Interpretation ABG results: PT/INR, D-dimer PT 16.0 Seconds (9.4-12.1) H 07/20/17 18:46 D-Dimer 663 ng/mLFEU (0-500) H 07/21/17 13:52 Consult Discharge Plan - Plan Referrals: Florentino Edwards MD [Primary Care Provider] - (Patient is to call [facility] after discharged to make a follow up appoitment. )
--- NOTE | 2017-07-25 14:47 | Internal Med Progress Note ---
Date of Encounter: 07/25/17 Time of Encounter: 14:45 - Assessment and plan (1) Cellulitis of left breast Current Visit: Yes Status: Acute Assessment and plan: She has constant lesions of breasts. The underside of left breast is erythematous with some swelling. Daughter states this is getting worse. Suspect this is cellulitis that is worsening. She is hemodynamically stable, no signs of sepsis, though she does appear somewhat somnolent and lethargic on admission and now she is returned to her baseline. SIRS 2 criteria (fever, RR) - of note patient has known PE, and this can cause both. WBC may be unreliable as patient was on chemotherapy. Should continue clinical judgment to assess for improvement - Blood cultures: No growth to date - Vanc/Zosyn discontinued Continue Bactrim/keflex (2) Acute metabolic encephalopathy Current Visit: Yes Status: Resolved Assessment and plan: This was present on admission, described as Unsure of cause, but could be from cellulitis/sepsis (SIRS 2 fever, RR). Could also be from chronic illness or delerium. Will continue to monitor, will do neurochecks as well. Neuro exam today was normal., Neurochecks - have not been abnormal. Supplemental O2 as needed. If any further episodes, will get CT head. Continue Bactirm/Keflex (3) Pulmonary embolism Current Visit: Yes Status: Acute Assessment and plan: CTA chest was done in the ER, which showed multiple segmental and subsegmental PE in lingluar and LLL pulmonary arteries; interval enlargement in the axillary and chest wall lymphomas; patient will likely require lifelong anticoagulation due to underlying malignancy; check B/L Venous Doppler; start anticoagulation with IV Heparin; supplemental o2 and supportive care; Echocardiogram unremarkable. Oncology consulted for further recommendations; 07/23: Patient has had excessive bleeding from the breast that has been difficult for nursing to control. Will hold off from anticoagulation and monitor H&H. Risks of anticoagulation at this point outweigh the benefits of coagulation. Patient does not have any signs or symptoms of hypoxia or heart strain. 5:11: no CP, SOB. Is hemodynamically stable. Lovenox held from severe breast lesion bleeding. Encouraged I.S. to improve oxygenation, saturating 93% on room air. No signs of hypoxia or right heart strain Qualifiers: Pulmonary embolism type: other Chronicity: acute Acute cor pulmonale presence: without acute cor pulmonale Qualified Code(s): I26.99 - Other pulmonary embolism without acute cor pulmonale (4) Weakness Current Visit: Yes Status: Acute Assessment and plan: Was unable to work with PT/OT on 07/23 because of acute bleeding. Will try again today since anticoagulation has been held. H&H 7.7 today gradual decline, possibly contribution of symptomatic anemia, will give 1 unit PRBC and monitor. (5) Lymphoma Current Visit: Yes Status: Chronic Assessment and plan: Mantle cell lymphoma, on chemotherapy; progressing; Oncology consult for further recommendations; PT/OT evaluation Poor prognosis Family is having discussion if she should seek Palliative consult possibly home with hospice. Qualifiers: Lymphoma type: non-Hodgkin Non-Hodgkin lymphoma type: non-follicular Non- follicular lymphoma type: mantle cell Lymphoma site: multiple regions Qualified Code(s): C83.18 - Mantle cell lymphoma, lymph nodes of multiple sites (6) CAD (coronary artery disease) Current Visit: Yes Status: Chronic Assessment and plan: continue ASA, statin, beta mayi, ACEI; Hold BB and ACEi when BP low Qualifiers: Coronary Disease-Associated Artery/Lesion type: [place] artery [place] vs. transplanted heart: [place] heart Associated angina: without angina Qualified Code(s): I25.10 - Atherosclerotic heart disease of [place] coronary artery without angina pectoris - Time Spent With Patient Total time spent is greater than 50% in coordination of care (as documented) at patient's floor/unit and/or counseling patient: - Subjective Interval history: 07/21: Daughters present at bedside. They note she is still weak. Patient states she still has SOB and weakness. Denies fevers/chills. Appetite is poor. Was unable to do PT/OT because of mental status. 07/22: Patient feels much better, energy improved and her weakness is significantly better. 07/23: daughter reported that patient did have episode of confusion overnight but she was not somnolent. Today nursing reports she had excessive bleeding from her right breast that continued to bleed despite applied pressure. Bleeding currently stopped. I cannot assess because the dressing cannot be removed. 5:11: no acute events overnight, bleeding from right breast stopped yesterday. No altered mental status episodes but patient states still feeling weak. 07/25: able to ambulate a little more - Constitutional Vitals: Temp Pulse Resp BP Pulse Ox 97.9 F 80 14 101/52 93 07/25/17 10:43 07/25/17 10:43 07/25/17 10:43 07/25/17 10:43 07/25/17 10:43 General appearance: Present: A&O X 3, answers questions appropriately Exam: Respiratory Respiratory exam: Present: CTAB. Absent: accessory muscle use, rales, rhonchi, wheezes - Extremities Exam Extremities exam: Present: full ROM, pedal edema (1+ pitting pedal edema B/L lower legs and ankles), warm, radial pulses palpable and symmetrical. Absent: calf tenderness, cyanotic - Neurological Exam Neurological exam: Present: CN II-XII intact, oriented X3, no focal deficits. Absent: pronater drift, facial droop, speech deficit - Skin Skin exam: Present: dry, intact Additional comments: B/L breasts with fungating erythematous tender masses; right breast- ulcerated mass, there is nonfoul-smelling serous discharge present. Unable to assess lesion today from excessive bleeding under the dressing. left breast - at bottom part of breast is erythematous surrounding lesion. Slightly better than yesterday in regards to erythema surrounding the ulceration. - Neurological Exam Neurological exam: Present: CN II-XII intact, oriented X3, no focal deficits. Absent: pronater drift, facial droop, speech deficit Internal Medicine: Result - Labs CBC & Chem 7: 07/25/17 06:21 07/25/17 06:21 Labs: Short CBC 07/25/17 Range/Units 06:21 WBC 6.8 (4.3-11.1) K/mcL Hgb 7.7 L (11.5-15.4) g/dL Hct 24.2 L (35.3-44.9) % Plt Count 255 (140-400) K/mcL Neutrophils # 4.2 (1.6-8.9) K/mcL BMP 07/25/17 06:21 Sodium 132 L Potassium 4.2 Chloride 105 Carbon Dioxide 22 L BUN 13 Creatinine 0.80 Glucose 98 Calcium 9.2 - ABG Interpretation ABG results: PT/INR, D-dimer PT 16.0 Seconds (9.4-12.1) H 07/20/17 18:46 D-Dimer 663 ng/mLFEU (0-500) H 07/21/17 13:52 Consult Discharge Plan - Plan Referrals: Florentino Edwards MD [Primary Care Provider] - ([facility] to make a follow up appoitment. )
[2017-07-25] MEDS ORDERED: 0.9 % Sodium Chloride 500 ML ONE (20:02)
[2017-07-26 03:25] LABS: Basophils % 0.4 %; Eosinophils # 0.2 K/mcL (0.0-0.6); Eosinophils % 2.1 %; Hematocrit 26.6 % (35.3-44.9); Lymphocytes # 0.8 K/mcL (0.6-4.6); Lymphocytes % 10.3 %; Mean Corpuscular HGB Conc 33.8 g/dL (31.6-35.5); Mean Corpuscular Hemoglobin 28.8 pg (28.0-33.3); Mean Corpuscular Volume 85.3 fL (83.0-100.0); Monocytes # 1.3 K/mcL (0.0-1.3); Monocytes % 17.3 %; Neutrophils # 4.5 K/mcL (1.6-8.9); Nucleated Red Blood Cells 0.3 /100 WBC (0); Platelet Count 265 K/mcL (140-400); Red Blood Count 3.12 M/mcL (3.82-4.97); Red Cell Distribution Width 14.8 % (11.5-14.5); Segmented Neutrophils % 61.9 %
[2017-07-26 03:44] LABS: BUN/Creatinine Ratio 13 (6-26); Blood Urea Nitrogen 10 mg/dL (8-23); Calcium 9.3 mg/dL (8.6-10.3); Carbon Dioxide 23 mEq/L (23-29); Chloride 105 mEq/L (98-107); Glucose 68 mg/dL (70-105); Osmolality,Calculated 273 (280-300); Potassium 4.4 mEq/L (3.5-5.1); Sodium 133 mEq/L (136-145); eGFR For African Americans > 60 (> 60); eGFR For Non-African Americans > 60 (> 60)
[2017-07-26 03:51] LABS: Large Platelets Present (Not Present); Platelet Estimate Normal (Normal); Toxic Granulation Present (Not Present)
[2017-07-26] MEDS: cephALEXin 500 MG CAPSULE PO SCH ×3 (08:39→21:29)
[2017-07-26] MEDS: Multivit/Ca/Min/Fe/FA 1 TAB TABLET PO SCH (08:39)
[2017-07-26] MEDS: Aspirin 81 MG TAB.CHEW PO SCH (08:39)
[2017-07-26] MEDS: Sulfamethoxazole/Trimeth DS 1 EACH TABLET PO SCH ×2 (08:39→21:29)
[2017-07-26] MEDS: *HR* Morphine Sulfate SR (12 HR) 15 MG TABLET.ER PO SCH ×2 (08:39→21:29)
[2017-07-26] MEDS: Folic Acid 1 MG TABLET PO SCH (08:40)
[2017-07-26] MEDS: Metoprolol XL (24 HR) Succ 50 MG TAB.ER.24H PO SCH (08:44)
--- NOTE | 2017-07-26 12:50 | Internal Med Progress Note ---
Date of Encounter: 07/26/17 Time of Encounter: 12:46 - Assessment and plan (1) Acute metabolic encephalopathy Current Visit: Yes Status: Resolved Assessment and plan: Likely from sepsis of cellulitis (SIRS 2 fever, RR). Patient at baseline MS We did have discussion with daughter in case the initial presentation of AMS was due to intracranial process (example mets to brain, tumor). Since patient is turning into hospice after rehab, they decided against doing further workup such as CT scan/MRI. Continue Bactirm/Keflex (2) Cellulitis of left breast Current Visit: Yes Status: Acute Assessment and plan: She has constant lesions of breasts. The underside of left breast is erythematous with some swelling. Daughter states this is getting worse. Suspect this is cellulitis that is worsening. She is hemodynamically stable, no signs of sepsis, though she does appear somewhat somnolent and lethargic on admission and now she is returned to her baseline. SIRS 2 criteria (fever, RR) - of note patient has known PE, and this can cause both. WBC may be unreliable as patient was on chemotherapy. Should continue clinical judgment to assess for improvement - Blood cultures: No growth to date - Vanc/Zosyn discontinued Continue Bactrim/keflex (3) Pulmonary embolism Current Visit: Yes Status: Acute Assessment and plan: CTA chest was done in the ER, which showed multiple segmental and subsegmental PE in lingluar and LLL pulmonary arteries; interval enlargement in the axillary and chest wall lymphomas; patient will likely require lifelong anticoagulation due to underlying malignancy; check B/L Venous Doppler; start anticoagulation with IV Heparin; supplemental o2 and supportive care; Echocardiogram unremarkable. 510: Patient has had excessive bleeding from the breast that has been difficult for nursing to control. Will hold off from anticoagulation and monitor H&H. Risks of anticoagulation at this point outweigh the benefits of coagulation. Patient does not have any signs or symptoms of hypoxia or heart strain. 5:11: no CP, SOB. Is hemodynamically stable. Lovenox held from severe breast lesion bleeding. No signs of hypoxia or right heart strain Qualifiers: Pulmonary embolism type: other Chronicity: acute Acute cor pulmonale presence: without acute cor pulmonale Qualified Code(s): I26.99 - Other pulmonary embolism without acute cor pulmonale (4) Weakness Current Visit: Yes Status: Acute Assessment and plan: Was unable to work with PT/OT on 5/10 because of acute bleeding. Will try again today since anticoagulation has been held. H*H was 7.7 transfused one unit PRBC on 07/25 since she is a cardiac patient. Today hemoglobin is 9.0. (5) Lymphoma Current Visit: Yes Status: Chronic Assessment and plan: Mantle cell lymphoma, on chemotherapy; progressing; Poor prognosis Patient is going to rehab then hospice Qualifiers: Lymphoma type: non-Hodgkin Non-Hodgkin lymphoma type: non-follicular Non- follicular lymphoma type: mantle cell Lymphoma site: multiple regions Qualified Code(s): C83.18 - Mantle cell lymphoma, lymph nodes of multiple sites (6) CAD (coronary artery disease) Current Visit: Yes Status: Chronic Assessment and plan: continue ASA, statin, beta mayi, ACEI; If breast bleeding continues or worsens, may need to hold aspirin (Lovenox already held) though she has high risk factors so will keep aspirin on right now. Qualifiers: Coronary Disease-Associated Artery/Lesion type: [place] artery [place] vs. transplanted heart: [place] heart Associated angina: without angina Qualified Code(s): I25.10 - Atherosclerotic heart disease of [place] coronary artery without angina pectoris - Time Spent With Patient Total time spent is greater than 50% in coordination of care (as documented) at patient's floor/unit and/or counseling patient: - Subjective Interval history: 07/21: Daughters present at bedside. They note she is still weak. Patient states she still has SOB and weakness. Denies fevers/chills. Appetite is poor. Was unable to do PT/OT because of mental status. 07/22: Patient feels much better, energy improved and her weakness is significantly better. 07/23: daughter reported that patient did have episode of confusion overnight but she was not somnolent. Today nursing reports she had excessive bleeding from her right breast that continued to bleed despite applied pressure. Bleeding currently stopped. I cannot assess because the dressing cannot be removed. 5:11: no acute events overnight, bleeding from right breast stopped yesterday. No altered mental status episodes but patient states still feeling weak. 07/25: able to ambulate a little more 07/26: patient has no complaints, no acute events. No more bleeding from breast today. Denies fevers/chills, n/v - Constitutional Vitals: Temp Pulse Resp BP Pulse Ox 98.2 F 82 16 111/58 96 07/26/17 10:18 07/26/17 10:18 07/26/17 10:18 07/26/17 10:18 07/26/17 10:18 General appearance: Present: A&O X 3, answers questions appropriately Exam: Gen: NAD, AAOx3 CVS: RRR Lungs: CTAB Breast: deferred - patient and family preference , no bleeding reported today Ext: no edema Internal Medicine: Result - Labs CBC & Chem 7: 07/26/17 02:46 07/26/17 02:46 Labs: Short CBC 07/26/17 Range/Units 02:46 WBC 7.3 (4.3-11.1) K/mcL Hgb 9.0 L (11.5-15.4) g/dL Hct 26.6 L (35.3-44.9) % Plt Count 265 (140-400) K/mcL Neutrophils # 4.5 (1.6-8.9) K/mcL BMP 07/26/17 02:46 Sodium 133 L Potassium 4.4 Chloride 105 Carbon Dioxide 23 BUN 10 Creatinine 0.79 Glucose 68 L Calcium 9.3 - ABG Interpretation ABG results: PT/INR, D-dimer PT 16.0 Seconds (9.4-12.1) H 07/20/17 18:46 D-Dimer 663 ng/mLFEU (0-500) H 07/21/17 13:52 - VTE Documentation of Mechanical Device: Intermittent pneumatic compression device Consult Discharge Plan - Plan Referrals: Florentino Edwards MD [Primary Care Provider] - ([facility] make [facility] follow up app[facility]ment. )
[2017-07-27] MEDS: Metoprolol XL (24 HR) Succ 50 MG TAB.ER.24H PO SCH (08:09)
[2017-07-27] MEDS: cephALEXin 500 MG CAPSULE PO SCH (09:00)
[2017-07-27] MEDS: *HR* Morphine Sulfate SR (12 HR) 15 MG TABLET.ER PO SCH (09:00)
[2017-07-27] MEDS: Sulfamethoxazole/Trimeth DS 1 EACH TABLET PO SCH (09:01)
[2017-07-27] MEDS: Folic Acid 1 MG TABLET PO SCH (09:01)
[2017-07-27] MEDS: Aspirin 81 MG TAB.CHEW PO SCH (09:01)
[2017-07-27] MEDS: Multivit/Ca/Min/Fe/FA 1 TAB TABLET PO SCH (09:01)
[2017-07-27 11:09] VITALS: BP 113/68
--- NOTE | 2017-07-27 13:06 | Discharge Summary ---
- NOTES TO OUTPATIENT PROVIDER Notes to Outpatient Provider: - Reassess cellulitis on left breast. Orders not resulted at time of discharge: Pending orders 07/21/17 14:36 Occult Blood,Stool [BF] Routine Date of Encounter: 07/27/17 Time of Encounter: 13:04 - Discharge Diagnosis (1) Acute metabolic encephalopathy Priority: Primary Status: Resolved (2) Cellulitis of left breast Priority: Secondary Status: Acute (3) Pulmonary embolism Priority: Secondary Status: Acute Qualifiers: Pulmonary embolism type: other Chronicity: acute Acute cor pulmonale presence: without acute cor pulmonale Qualified Code(s): I26.99 - Other pulmonary embolism without acute cor pulmonale (4) Weakness Priority: Secondary Status: Acute (5) Lymphoma Priority: Secondary Status: Chronic Qualifiers: Lymphoma type: non-Hodgkin Non-Hodgkin lymphoma type: non-follicular Non- follicular lymphoma type: mantle cell Lymphoma site: multiple regions Qualified Code(s): C83.18 - Mantle cell lymphoma, lymph nodes of multiple sites (6) CAD (coronary artery disease) Priority: Secondary Status: Chronic Qualifiers: Coronary Disease-Associated Artery/Lesion type: [place] artery [place] vs. transplanted heart: [place] heart Associated angina: without angina Qualified Code(s): I25.10 - Atherosclerotic heart disease of [place] coronary artery without angina pectoris Hospital course: Ms. Jones is a 76 year old female with h/o- mantle cell lymphoma with multiple skin lesions, presented due to altered mental status, malaise, and fatigue. History is also obtained from patient's daughter at bedside. patient does live alone but her family checks on her frequently; she just had [facility] set up. She failed initial chemotherapy for lymphoma and was recently started on a new regimen about 10 days ago, since when she began declining per family. She has significant malaise, weakness and lethargy along with exertional dyspnea, leg swelling and moist cough. No chest pain, palpitations. She reports nausea but no vomiting, abdominal pain; she has constipation due to pain meds. She also noted right breast lesion size and drainage has increased over the last few days. She has multiple lymphomatous skin lesions, the biggest and worst being in right breast, along with left breast, left hip, right back. Right breast has had a few episodes of bleeding at home. A CTA of chest was done in the ER that showed multiple segmental and subsegmental PEs in LLL pulmonary arteries. She was not hypoxic during this time. She was started on a heparin drip with supportive care as needed. Oncology was consulted in regards to anticoagulation in this patient with advanced cancer. It was recommended to start Lovenox. During admission, patient had two episodes of acute bleeding in her right breast both times soaking her clothes. Lovenox was discontinued. Patient was treated for a cellulitis of her right breast and patient's altered mental status did improve at that point. She was transitioned to oral antibiotics. Patient worked with PT/OT during admission. Patient has poor prognosis and opted to go to SNF for therapy and then home with hospice after. She was discharged to SNF and condition is guarded. She had signs of improved cellulitis and bleeding of right breast resolved. Since patient is hypercoagulable with CAD, and is not a good anticoagulation candidate, aspirin was continued. Patient and family were in agreement to this. - Time Spent with Patient Total time spent providing and/or coordinating discharge services: - Discharge Medications Prescriptions: OxyCODONE Immed Rel [Roxicodone 15 MG] 15 mg PO Q8HR 3 Days #9 tablet LORazepam [Ativan] 0.5 mg PO Q6H PRN 3 Days #9 tablet PRN Reason: nausea.anxiety,sleep Morphine Sulfate [Arymo ER] 15 mg PO BID 3 Days #6 tab.po.er Home Medications: Aspirin Enteric Coated [Aspirin EC] 81 mg PO DAILY 10/31/14 [History] Calcium Carbonate/Vitamin D3 [Calcium 600 + D Tablet] 1 tab PO BID 10/31/14 [ History] Escitalopram [Lexapro] 5 mg PO DAILY 10/31/14 [History] Folic Acid 0.4 mg PO DAILY 10/31/14 [History] LORazepam [Ativan] 0.5 mg PO Q6H PRN 10/31/14 [History] Multivit-Min/FA/Lycopen/Lutein [Centrum Silver Tablet] 1 each PO DAILY 10/31/14 [History] Atorvastatin [Lipitor] 10 mg PO HS 05/01/16 [History] hydroCHLOROthiazide [Hydrochlorothiazide] 12.5 mg PO DAILY PRN 05/01/16 [History ] Lisinopril [Zestril] 10 mg PO DAILY 11/03/16 [History] Ondansetron [Zofran] 4 mg PO Q8HR PRN #90 tablet 01/02/17 [Rx] Cranberry Fruit Extract/Vit C [Azo Cranberry Softgel] 1 each PO DAILY 03/04/17 [ History] Docusate [Colace] 100 mg PO BID #60 capsule 04/17/17 [Rx] Magic Mouthwash 10 ml PO Q4HR PRN #400 ml 04/21/17 [Rx] Metoprolol Succinate [Toprol Xl] 150 mg PO DAILY 07/21/17 [History] LORazepam [Ativan] 0.5 mg PO Q6H PRN 3 Days #9 tablet 07/27/17 [Rx] Morphine Sulfate [Arymo ER] 15 mg PO BID 3 Days #6 tab.po.er 07/27/17 [Rx] OxyCODONE Immed Rel [Roxicodone 15 MG] 15 mg PO Q8HR 3 Days #9 tablet 07/27/17 [ Rx] Sulfamethoxazole/Trimeth DS [Bactrim Ds] 1 each PO BID tablet 07/27/17 [Rx] cephALEXin [Keflex] 500 mg PO TID capsule 07/27/17 [Rx] Allergies/Adverse Reactions: 3 Allergy/AdvReac Type Severity Reaction Status Date / Time Diclofenac [From Voltaren] Allergy Unknown unknown Verified 07/20/17 20:31 Latex, Natural Rubber Allergy Unknown unknown Verified 07/20/17 20:31 Penicillins [PCN] Allergy Unknown unknown Verified 07/20/17 20:31 Date of admission: 07/20/17 23:39 Primary care physician: Florentino Edwards MD Consults: 07/20/17 23:41 Consult to Occupational Therapy [CONS] Routine Comment: Evaluate, develop and implement POC Reason for Consult: Generalized weakness, lethargy Does patient have active BEDREST order?: No Is patient medically & hemodynamically stable?: No Patient assessed for mobility or mobilized this visit?: No Consult to Oncology [CONS] Routine Consulting Provider: [facility] Reason for Consult: h/o- mantle cell lymphoma, on chemo; worsening lesions on right breast, new diagnosis of PE Call Completed: No Consult to Physical Therapy [CONS] Routine Comment: Evaluate, develop and implement POC Reason for Consult: Generalized weakness, lethargy Does patient have active BEDREST order?: No Is patient medically & hemodynamically stable?: No Patient assessed for mobility or mobilized this visit?: No 07/21/17 17:00 Consult to Wound Care [CONS] Routine Reason for Consult: Breast lesions. Call Completed: Yes Discharging clinician: Simone Chris - Constitutional Vitals: Temp Pulse Resp BP Pulse Ox 97.7 F 81 15 113/68 95 07/27/17 11:04 07/27/17 11:04 07/27/17 11:04 07/27/17 11:04 07/27/17 11:04 General appearance: Present: A&O X 3, answers questions appropriately Exam: Gen: NAD, AAOx3 CVS: RRR Lungs: CTAB Breast: deferred, symptoms improved Ext: no edema - Patient Status Disposition: Transfer SNF Condition: Fair Functional capacity at discharge: uses cane/walker Overall status at discharge: patient is progressing back to baseline - Discharge Instructions Follow Up With: Florentino Edwards MD [Primary Care Provider] - [facility]. ) - Diet and Activity Activity: as per physical therapy Diet: advance to your usual diet - VTE Documentation of Mechanical Device: Intermittent pneumatic compression device
--- NOTE | 2017-07-27 13:23 | Physician Discharge Referral ---
ExtendedCare Referral Info Institutional Level of Care: Skilled - Diagnosis (1) Acute metabolic encephalopathy Priority: Primary Status: Resolved (2) Cellulitis of left breast Priority: Secondary Status: Acute (3) Pulmonary embolism Priority: Secondary Status: Acute (4) Weakness Priority: Secondary Status: Acute (5) Lymphoma Priority: Secondary Status: Chronic (6) CAD (coronary artery disease) Priority: Secondary Status: Chronic - Transfer Medications Prescriptions: OxyCODONE Immed Rel [Roxicodone 15 MG] 15 mg PO Q8HR 3 Days #9 tablet LORazepam [Ativan] 0.5 mg PO Q6H PRN 3 Days #9 tablet PRN Reason: nausea.anxiety,sleep Morphine Sulfate [Arymo ER] 15 mg PO BID 3 Days #6 tab.po.er Home Medications: Aspirin Enteric Coated [Aspirin EC] 81 mg PO DAILY 10/31/14 [History] Calcium Carbonate/Vitamin D3 [Calcium 600 + D Tablet] 1 tab PO BID 10/31/14 [ History] Escitalopram [Lexapro] 5 mg PO DAILY 10/31/14 [History] Folic Acid 0.4 mg PO DAILY 10/31/14 [History] LORazepam [Ativan] 0.5 mg PO Q6H PRN 10/31/14 [History] Multivit-Min/FA/Lycopen/Lutein [Centrum Silver Tablet] 1 each PO DAILY 10/31/14 [History] Atorvastatin [Lipitor] 10 mg PO HS 05/01/16 [History] hydroCHLOROthiazide [Hydrochlorothiazide] 12.5 mg PO DAILY PRN 05/01/16 [History ] Lisinopril [Zestril] 10 mg PO DAILY 11/03/16 [History] Ondansetron [Zofran] 4 mg PO Q8HR PRN #90 tablet 01/02/17 [Rx] Cranberry Fruit Extract/Vit C [Azo Cranberry Softgel] 1 each PO DAILY 03/04/17 [ History] Docusate [Colace] 100 mg PO BID #60 capsule 04/17/17 [Rx] Magic Mouthwash 10 ml PO Q4HR PRN #400 ml 04/21/17 [Rx] Metoprolol Succinate [Toprol Xl] 150 mg PO DAILY 07/21/17 [History] LORazepam [Ativan] 0.5 mg PO Q6H PRN 3 Days #9 tablet 07/27/17 [Rx] Morphine Sulfate [Arymo ER] 15 mg PO BID 3 Days #6 tab.po.er 07/27/17 [Rx] OxyCODONE Immed Rel [Roxicodone 15 MG] 15 mg PO Q8HR 3 Days #9 tablet 07/27/17 [ Rx] Sulfamethoxazole/Trimeth DS [Bactrim Ds] 1 each PO BID tablet 07/27/17 [Rx] cephALEXin [Keflex] 500 mg PO TID capsule 07/27/17 [Rx] Allergies/Adverse Reactions: 3 Allergy/AdvReac Type Severity Reaction Status Date / Time Diclofenac [From Voltaren] Allergy Unknown unknown Verified 07/20/17 20:31 Latex, Natural Rubber Allergy Unknown unknown Verified 07/20/17 20:31 Penicillins [PCN] Allergy Unknown unknown Verified 07/20/17 20:31 - Respiratory Orders Smoking Cessation: Smoking cessation has been advised. For more information, call the [place] Quit Line at 1-316-YZFK-NOW. - Ancillary Orders May use pressure relief devices daily prn, May go on JOCELYN w/family/respon green party w /meds at nurse discretion PRN - Advance Directives Code Status: DNR-Comfort Care - Mobility Orders Other (as per physical therapy) - Rehabiliation Orders Rehab Orders: Sternal Precautions, ROM Exercises, Evaluation for Physical Therapy, Evaluation for Occupational Therapy - Treatments Skin tear care topically daily PRN per policy, May check for fecal impaction rectally daily PRN - Diet Orders Cardiac CERTIFICATION: I certify that the transfer of the above named patient to an Extended Care Facility is necessary for the continuing treatment of the diagnosis listed. The above information is true and accurate reflection of patient's current condition. Confidential - Redisclosure prohibited without a patient's written consent.
== END 2017-07-27 16:21 | DRG 175 ==
LOC: 3ANU 13:54 → EMEROO 13:54 → 3ANU 21:59 → SUATTDRO 23:39
PROVIDERS: ADMIT Internal Medicine; ATTEND Student in an Organized Health Care Education/Training Program